=== PATIENT | female | born 1965 | race Caucasian/White ===

== ENCOUNTER 2016-11-21 18:42 | Emergency (ER) | payer OTHER ==
[~2016-11-21] VITALS: Ht 162.6 cm; Wt 82.9 kg
[~2016-11-21 18:42] MED LIST: ALBU1AER9 INH; ASPCH81X PO; BACL10TA PO; CYM/30 PO; DOXY100C PO; ELET40TA PO; ETOD300C20 PO; FRCT/ PO; FURO-85 PO; MELA1CAP9 PO; NRN/600 PO; OMEP40CA41 PO
[2016-11-21 19:08] VITALS: TEMP 36.9; Ht 162.6 cm; Wt 82.9 kg
[2016-11-21] MEDS ORDERED: ONDANSETRON INJ 2 MG/ML 2 ML VIAL IV STA (19:51)
[2016-11-21] MEDS ORDERED: XYLOCAINE 1%/SOD BICARB 20 ML VIAL INFIL STA (19:51)
[2016-11-21] MEDS ORDERED: KETOROLAC TROMETHAMINE 30 MG/ML VIAL IV STA (19:51)
[2016-11-21] MEDS ORDERED: SODIUM CHLORIDE 0.9% 1000ML 1,000 ML IV STA (19:51)
--- NOTE | 2016-11-21 19:54 | EMERGENCY ROOM VISIT NOTE ---
History Report prepared by Samuel: Natalya Gómez Under the Supervision of: Dr. Otto Eric M.D. First contact with patient: 19:20 Chief Complaint: NECK PAIN Stated Complaint: NECK HURTS, STOMACH SICK, EYES History of Present Illness The patient is a 51 year old female who presents to the Emergency Room with complaints of worsening neck pain beginning 4 days prior to arrival. She notes pain when moving her neck. The patient is experiencing fevers, vomiting, nausea , diarrhea, abdominal pain, dizziness and a mild headache. The patient went to the walk in clinic on Thursday due to an abscess that was under her arm. She was put on Bactrim. 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 A total of 10 systems reviewed and were otherwise negative. Past Medical & Surgical Medical Problems: (1) Diabetes (2) Fibromyalgia (3) Migraine headache Family History Hypertension Social History Smoking Status: Never Smoker Alcohol Use: none Drug Use: none Marital Status: Housing Status: lives with family Occupation Status: employed Current/Historical Medications Scheduled Acetamin/Butalbital/Caffeine (Fioricet), 1 TAB PO BID Albuterol Sulfate (Proair Respiclick), 2 PUFFS INH 2-3 TIMES DAILY Aluminum Hydroxide-Mag Carb (Gaviscon), 1 TBS PO BID Aspirin (Aspirin Chewable), 81 MG PO HS Baclofen (Lioresal), 10 MG PO BID Doxycycline Monohydrate (Monodox), 100 MG PO BID Duloxetine Hcl (Cymbalta), 40 MG PO HS Folic Acid (Folvite), 1 MG PO QAM Levocetirizine Dihydrochloride (Levocetirizine Dihydrochl), 5 MG PO QPM Melatonin (Melatonin), 30 MG PO HS Multivitamins/Minerals (Mvi With Minerals), 1 TAB PO DAILY Nifedipine Ext Rel (Procardia Xl Ext Rel), 30 MG PO QPM Amenia-3 Fatty Acids (Fish Oil 1200 mg), 1,200 MG PO QAM Omeprazole (Prilosec), 40 MG PO DAILY Ondasetron Odt (Zofran Odt), 4 MG SL Q6H Ranitidine (Zantac), 300 MG PO HS Scheduled PRN Furosemide (Lasix), 20 MG PO DAILY PRN for Swelling Ondansetron Hcl (Zofran), 8 MG PO Q8 PRN for Nausea [Emla], 1 APPLN TOP DAILY PRN for PRN Allergies Coded Allergies: Iodinated Diagnostic Agents (Unverified Allergy, Severe, "SWELLING: FACE, TONGUE, THROAT", 11/21/16) Amoxicillin (Unverified Allergy, Unknown, RASH, 11/21/16) Banana (Unverified Allergy, Unknown, VOMITING, 11/21/16) Black Pepper (Unverified Allergy, Unknown, VOMITING, 11/21/16) Citalopram (Unverified Allergy, Unknown, UNKNOWN, 11/21/16) Codeine (Unverified Allergy, Unknown, ?, 11/20/15) Gadolinium (Unverified Allergy, Unknown, UNKNOWN, 11/21/16) Meloxicam (Unverified Allergy, Unknown, ?, 11/20/15) Meperidine (Unverified Allergy, Unknown, RASH, 11/21/16) Morphine (Unverified Allergy, Unknown, RASH, 11/21/16) Morphine and Related (Unverified Allergy, Unknown, RASH, 11/21/16) Nitroglycerin (Unverified Allergy, Unknown, ?, 11/20/15) Penicillins (Unverified Allergy, Unknown, UNKNOWN, 11/21/16) Phenytoin (Unverified Allergy, Unknown, RASH, 11/21/16) Pork (Unverified Allergy, Unknown, VOMITING, 11/21/16) Prochlorperazine (Unverified Allergy, Unknown, RASH, 11/21/16) Salt (Unverified Allergy, Unknown, VOMITING, 11/21/16) Sumatriptan (Unverified Allergy, Unknown, ?, 11/20/15) Physical Exam Vital Signs Date Time Temp Pulse Resp B/P (MAP) Pulse Ox O2 Delivery O2 Flow Rate FiO2 11/21/16 22:09 80 18 112/74 98 11/21/16 21:28 75 11/21/16 21:08 73 18 117/61 100 Room Air 11/21/16 19:08 36.9 74 16 115/74 99 Room Air Physical Exam GENERAL: Patient is a healthy-appearing well-nourished female HEAD: Normocephalic atraumatic. No evidence of cephalitis or meningitis on exam. EYES: Ocular movements intact pupils equal and react to light OROPHARYNX mucous membranes are moist no exudates present no erythema or edema present NECK: Supple no nuchal rigidity CHEST: Good equal expansion LUNGS: Clear and equal to auscultation CARDIAC: Normal S1 and S2 ABDOMEN: Soft nontender no guarding BACK: No CVA tenderness EXTREMITIES: No pain upon palpation normal muscle strength in all groups no clubbing cyanosis or edema NEURO: Patient is following commands and answering questions appropriately. Alert and oriented x3 Cranial Nerves 2-12 grossly intact Medical Decision & Procedures ER Provider Diagnostic Interpretation: CT results as stated below per my review and radiologist interpretation: HEAD CT NONCONTRAST CT DOSE: 537.48 mGy.cm HISTORY: Headache. Mental status change. Pt c/o severe headache TECHNIQUE: Multiaxial CT images of the head were performed without the use of intravenous contrast. Comparison: 07/20/2013 Findings: The paranasal sinuses and mastoid air cells are clear. The calvarium and skull base are intact. The ventricles and sulci are within normal limits. There is no mass, hematoma, midline shift, or acute infarct. Impression: No acute intracranial abnormality. Electronically signed by: Will Harkins M.D. 11/21/2016 8:52 PM Dictated Date/Time: 11/21/2016 8:51 PM Laboratory Results 11/21/16 20:05 Red Blood Count 4.61, Mean Corpuscular Volume 86.6, Mean Corpuscular Hemoglobin 28.4, Mean Corpuscular Hemoglobin Concent 32.8, Mean Platelet Volume 9.1, Neutrophils (%) (Auto) 76.4, Lymphocytes (%) (Auto) 11.6, Monocytes (%) (Auto) 8.6, Eosinophils (%) (Auto) 2.6, Basophils (%) (Auto) 0.7, Neutrophils # (Auto) 5.65, Lymphocytes # (Auto) 0.86, Monocytes # (Auto) 0.64, Eosinophils # (Auto) 0.19, Basophils # (Auto) 0.05 11/21/16 20:05 Test 11/21/16 19:55 11/21/16 20:05 Urine Color YELLOW Urine Appearance CLOUDY (CLEAR) Urine pH 5.0 (4.5-7.5) Urine Specific [place] 1.038 (1.000-1.030) Urine Protein NEG (NEG) Urine Glucose (UA) NEG (NEG) Urine Ketones NEG (NEG) Urine Occult Blood NEG (NEG) Urine Nitrite NEG (NEG) Urine Bilirubin NEG (NEG) Urine Urobilinogen NEG (NEG) Urine Leukocyte Esterase NEG (NEG) Urine WBC (Auto) 1-5 /hpf (0-5) Urine RBC (Auto) 0-4 /hpf (0-4) Urine Hyaline Casts (Auto) 1-5 /lpf (0-5) Urine Epithelial Cells (Auto) >30 /lpf (0-5) Urine Bacteria (Auto) 1+ (NEG) White Blood Count 7.40 K/uL (4.8-10.8) Red Blood Count 4.61 M/uL (4.2-5.4) Hemoglobin 13.1 g/dL (12.0-16.0) Hematocrit 39.9 % (37-47) Mean Corpuscular Volume 86.6 fL (80-100) Mean Corpuscular Hemoglobin 28.4 pg (25-34) Mean Corpuscular Hemoglobin Concent 32.8 g/dl (32-36) Platelet Count 330 K/uL (130-400) Mean Platelet Volume 9.1 fL (7.4-10.4) Neutrophils (%) (Auto) 76.4 % Lymphocytes (%) (Auto) 11.6 % Monocytes (%) (Auto) 8.6 % Eosinophils (%) (Auto) 2.6 % Basophils (%) (Auto) 0.7 % Neutrophils # (Auto) 5.65 K/uL (1.4-6.5) Lymphocytes # (Auto) 0.86 K/uL (1.2-3.4) Monocytes # (Auto) 0.64 K/uL (0.11-0.59) Eosinophils # (Auto) 0.19 K/uL (0-0.5) Basophils # (Auto) 0.05 K/uL (0-0.2) RDW Standard Deviation 42.4 fL (36.4-46.3) RDW Coefficient of Variation 13.3 % (11.5-14.5) Immature Granulocyte % (Auto) 0.1 % Immature Granulocyte # (Auto) 0.01 K/uL (0.00-0.02) Anion Gap 9.0 mmol/L (3-11) Est Creatinine Clear Calc Drug Dose 70.1 ml/min Estimated GFR () 76.1 Estimated GFR (Non- 65.6 BUN/Creatinine Ratio 20.6 (10-20) Calcium Level 9.3 mg/dl (8.5-10.1) Total Bilirubin 0.2 mg/dl (0.2-1) Direct Bilirubin < 0.1 mg/dl (0-0.2) Aspartate Amino Transf (AST/SGOT) 13 U/L (15-37) Alanine Aminotransferase (ALT/SGPT) 23 U/L (12-78) Alkaline Phosphatase 92 U/L (45-117) Total Protein 8.1 gm/dl (6.4-8.2) Albumin 3.8 gm/dl (3.4-5.0) Lipase 197 U/L (73-393) Labs reviewed by ED physician. Medications Administered Medications (Trade) Dose Ordered Sig/Fernanda Route Start Time Stop Time Status Last Admin Dose Admin Ketorolac Tromethamine (Toradol Inj) 30 mg NOW STAT IV 11/21/16 19:51 11/21/16 19:53 DC 11/21/16 20:16 30 MG Ondansetron HCl (Zofran Inj) 4 mg NOW STAT IV 11/21/16 19:51 11/21/16 19:53 DC 11/21/16 20:11 4 MG Sodium Chloride 1,000 ml @ 999 mls/hr Q1H1M STAT IV 11/21/16 19:51 11/21/16 20:51 DC 11/21/16 20:15 999 MLS/HR Lidocaine HCl (Buffered Lidocaine 1% Inj) 20 ml ONE STAT INFIL 11/21/16 19:51 11/21/16 19:54 DC 11/21/16 20:16 20 ML Doxycycline Hyclate (Vibramycin Cap) 100 mg ONE ONCE PO 11/21/16 21:45 11/21/16 21:46 DC 11/21/16 21:54 100 MG Ondansetron HCl (ZOFRAN ODT 4MG Home Pack) 1 homepack UD ONCE PO 11/21/16 21:45 11/21/16 21:46 DC 11/21/16 21:54 1 HOMEPACK ED Course 1943: Past medical records reviewed. The patient was evaluated in room A12. A complete history and physical examination was performed. 1950: Buffered Lidocaine 1% Inj 20 ml INFIL, Sodium Chloride 1,000 ml @ 999 mls/ hr IV, Zofran Inj 4 mg Iv, Toradol Inj 30 mg IV. 2144: Zofran ODT 4 MG Home Pack 1 homepack PO, Vibramycin Cap 100 mg PO. 2145: I attempted to perform an I&D on the patient and she says that she did not want one performed. 2149: Upon reexamination the patient is hemodynamically stable. I discussed results and treatment plan with the patient. She verbalizes agreement and understanding. The patient is ready for discharge. Medical Decision Differential diagnosis: Etiologies such as migraine headache, meningitis, sinusitis, CO exposure, ICH, SAH, infection, tumor, headache, sinus thrombosis, arterial dissection, as well as others were entertained. Medication Reconciliation: I attest that I have personally reviewed the patient' s current medication list. Blood Pressure Screening: Patient was found to have normal blood pressure on screening and does not require follow up. This is a 51-year-old female who presents emergency department complaining of neck stiffness nausea and vomiting. I do not believe that the patient has any evidence of meningitis or encephalitis on examination however the patient noted that she is allergic to a large amount of medications and believe she is having allergic reaction to the Bactrim. For this reason I did start the patient's Bactrim. I recommended that these abscess in her armpit be drained however the patient is adamantly refusing. She wishes to try doxycycline. She was given Toradol Benadryl and Compazine for the pain. Repeat examination revealed improvement patient's symptoms. I do believe that the patient as well as to be discharged home for follow-up with her primary care physician. Patient was in agreement with the treatment plan. Impression Primary Impression: Vomiting Scribe Attestation The scribe's documentation has been prepared under my direction and personally reviewed by me in its entirety. I confirm that the note above accurately reflects all work, treatment, procedures, and medical decision making performed by me. Departure Information Dispostion Home / Self-Care Prescriptions Ondasetron Odt (ZOFRAN ODT) 4 Mg Tab 4 MG SL Q6H for Nausea, #6 TAB Prov: Otto Eric MD 11/21/16 Doxycycline Monohydrate (Monodox) 100 Mg Cap 100 MG PO BID for 10 Days, #20 CAP Prov: Otto Eric MD 11/21/16 Referrals Saniya Sim (PCP) Forms HOME CARE DOCUMENTATION FORM, IMPORTANT VISIT INFORMATION, WORK / SCHOOL INSTRUCTIONS Patient Instructions My [facility], Nausea Vomit Control Additional Instructions STOP taking Bactrim Take Doxycyline with food Culture results are usually available in approx 48 hours You have been examined and treated today on an emergency basis only. This is not a substitute for, or an effort to provide, complete comprehensive medical care. It is impossible to recognize and treat all injuries or illnesses in a single emergency department visit. It is therefore important that you follow up closely with Dr Sim. Call as soon as possible for an appointment. Thank you for your time and consideration. I look forward to speaking with you again soon. Please don't hesitate to call us if you have any questions. Problem Qualifiers Primary Impression: Vomiting Vomiting type: unspecified Vomiting Intractability: unspecified Nausea presence: unspecified Qualified Codes: R11.10 - Vomiting, unspecified
[2016-11-21] MEDS ORDERED: ALUMSUS21 PO (20:16)
[2016-11-21] MEDS ORDERED: NIFE30TA83 PO (20:16)
[2016-11-21] MEDS ORDERED: ONDA8TAB6 PO (20:16)
[2016-11-21] MEDS ORDERED: EMLA TOP (20:16)
[2016-11-21] MEDS ORDERED: FOLI1TAB7 PO (20:16)
[2016-11-21] MEDS ORDERED: LEVO-14 PO (20:16)
[2016-11-21] MEDS ORDERED: DULO-24 PO (20:16)
[2016-11-21] MEDS ORDERED: RANI300T2 PO (20:16)
[2016-11-21] MEDS ORDERED: OMEG5CAP PO (20:16)
[2016-11-21] MEDS ORDERED: ALBU18002 INH (20:16)
[2016-11-21 20:18] LABS: BASO % 0.7 %; BASO ABS # 0.05 K/uL (0-0.2); COMPLETE YES; EOS % 2.6 %; HEMATOCRIT 39.9 % (37-47); IG% 0.1 %; LYMPH % 11.6 %; LYMPH ABS # 0.86 K/uL (1.2-3.4); MEAN CELL VOLUME 86.6 fL (80-100); MEAN CORPUSCULAR HEMOGLOBIN 28.4 pg (25-34); MEAN CORPUSCULAR HGB CONC 32.8 g/dl (32-36); MEAN PLATELET VOLUME 9.1 fL (7.4-10.4); MONO % 8.6 %; NEUT % 76.4 %; PLATELET COUNT 330 K/uL (130-400); RED BLOOD COUNT 4.61 M/uL (4.2-5.4)
[2016-11-21] MEDS ORDERED: MULT-513 PO (20:18)
[2016-11-21 20:22] LABS: MANUAL MICROSCOPIC REQUIRED? NO; REVIEW REQ? NO; URINE APPEARANCE CLOUDY (CLEAR); URINE BILIRUBIN NEG (NEG); URINE COLOR YELLOW; URINE EPITHELIAL CELL AUTO >30 /lpf (0-5); URINE NITRITE NEG (NEG); URINE SPECIFIC GRAVITY 1.038 (1.000-1.030); UROBILINOGEN NEG (NEG)
[2016-11-21 20:34] LABS: ALT/SGPT 23 U/L (12-78); BLOOD UREA NITROGEN 21 mg/dl (7-18); BUN/CREATININE RATIO 20.6 (10-20); CALCIUM 9.3 mg/dl (8.5-10.1); CARBON DIOXIDE 26 mmol/L (21-32); CHLORIDE 104 mmol/L (98-107); GLUCOSE 109 mg/dl (70-99); POTASSIUM 3.9 mmol/L (3.5-5.1); SODIUM 139 mmol/L (136-145)
[2016-11-21 20:37] LABS: ALKALINE PHOSPHATASE 92 U/L (45-117); AST/SGOT 13 U/L (15-37)
--- NOTE | 2016-11-21 20:53 | DIAGNOSTIC IMAGING REPORT ---
HEAD CT NONCONTRAST CT DOSE: 537.48 mGy.cm HISTORY: Headache. Mental status change. Pt c/o severe headache TECHNIQUE: Multiaxial CT images of the head were performed without the use of intravenous contrast. Comparison: 07/20/2013 Findings: The paranasal sinuses and mastoid air cells are clear. The calvarium and skull base are intact. The ventricles and sulci are within normal limits. There is no mass, hematoma, midline shift, or acute infarct. Impression: No acute intracranial abnormality. Electronically signed by: Will Harkins M.D. 11/21/2016 8:52 PM Dictated Date/Time: 11/21/2016 8:51 PM
[2016-11-21] MEDS ORDERED: ONDANSETRON HOME PACK 4MG OD TAB PO ONE (21:45)
[2016-11-21] MEDS ORDERED: DOXYCYCLINE HYCLATE 100 MG CAP PO ONE (21:45)
[2016-11-21] MEDS ORDERED: ONDA4TAB10 SL (21:48)
[2016-11-21] MEDS ORDERED: DOXY100C76 PO (21:48)
[2016-11-21 22:09] VITALS: BP 112/74; PULSE 80; O2SAT 98
[2017-03-23] MEDS ORDERED: CLC/150 PO (10:53)
[2017-03-23] MEDS ORDERED: ACET1TAB84 PO (10:53)
== END 2016-11-21 22:09 | disposition home or self-care (01) ==
LOC: C.EDB 18:47 → C.EDA 22:09
DX: M43.6 Torticollis (principal); L02.419 Cutaneous abscess of limb, unspecified; R50.9 Fever, unspecified; R11.12 Projectile vomiting; R19.7 Diarrhea, unspecified; R10.9 Unspecified abdominal pain; R42 Dizziness and giddiness; R51 Headache; E11.9 Type 2 diabetes mellitus without complications; M79.7 Fibromyalgia; Z79.899 Other long term (current) drug therapy

== ENCOUNTER 2018-01-14 21:10 | Emergency (ER) | payer OTHER ==
[~2018-01-14] VITALS: Ht 157.5 cm; Wt 84.3 kg
[~2018-01-14 21:10] MED LIST changes: +ACET1TAB84 PO; +ALBU18002 INH; -ALBU1AER9 INH; +CLC/150 PO; -CYM/30 PO; -DOXY100C PO; +DULO-24 PO; -ELET40TA PO; +EMLA TOP; -ETOD300C20 PO; +FOLI1TAB8 PO; -FRCT/ PO; +MULT-513 PO; -NRN/600 PO; +OMEG5CAP PO; +ONDA-170 PO; +RANI300T2 PO
[2018-01-14 21:16] VITALS: TEMP 36.9; Ht 157.5 cm; Wt 84.3 kg
[2018-01-14] MEDS ORDERED: SODIUM CHLORIDE 0.9% 1000ML 1,000 ML IV STA (22:23)
[2018-01-14] MEDS ORDERED: KETOROLAC TROMETHAMINE 30 MG/ML VIAL IV STA (22:23)
[2018-01-14 22:35] LABS: BASO ABS # 0.07 K/uL (0-0.2); EOS % 1.6 %; EOS ABS # 0.11 K/uL (0-0.5); HEMATOCRIT 37.1 % (37-47); HEMOGLOBIN 12.2 g/dL (12.0-16.0); IG# 0.02 K/uL (0.00-0.02); LYMPH % 24.8 %; LYMPH ABS # 1.69 K/uL (1.2-3.4); MEAN CELL VOLUME 85.9 fL (80-100); MEAN CORPUSCULAR HEMOGLOBIN 28.2 pg (25-34); MEAN CORPUSCULAR HGB CONC 32.9 g/dl (32-36); MEAN PLATELET VOLUME 9.1 fL (7.4-10.4); MONO % 6.5 %; MONO ABS # 0.44 K/uL (0.11-0.59); NEUT % 65.8 %; NEUT ABS # 4.49 K/uL (1.4-6.5); PLATELET COUNT 319 K/uL (130-400); RED CELL DISTRIBUTION WIDTH CV 13.6 % (11.5-14.5); WHITE BLOOD COUNT 6.82 K/uL (4.8-10.8)
[2018-01-14] MEDS ORDERED: GABA-112 PO (22:44)
--- NOTE | 2018-01-14 22:45 | DIAGNOSTIC IMAGING REPORT ---
CT SCAN OF THE BRAIN WITHOUT IV CONTRAST CLINICAL HISTORY: Weakness. Change in mental status. COMPARISON STUDY: CT of the brain dated 11/21/2016. TECHNIQUE: Unenhanced axial CT scan of the brain is performed from the vertex to the skull base. A dose lowering technique was utilized adhering to the principles of ALARA. CT DOSE: 537.48 mGy.cm FINDINGS: Brain parenchyma: The brain parenchyma is normal in appearance. There is no hemorrhage, mass effect, or evidence of acute territorial ischemia by CT criteria. [place]-white matter is preserved. No extra-axial fluid collection is seen. Ventricles, sulci, cisterns: Normal in configuration. Intracranial vasculature: The visualized intracranial vasculature at the skull base is normal in appearance. Calvarium: Unremarkable. Sinuses and mastoids: The visualized paranasal sinuses are clear. The mastoid air cells are well pneumatized. Orbits: The bony orbits are grossly intact. IMPRESSION: There is no hemorrhage, mass effect, or evidence of acute territorial ischemia by CT criteria. Electronically signed by: Rodolfo Conklin M.D. 01/14/2018 10:44 PM Dictated Date/Time: 01/14/2018 10:42 PM
[2018-01-14 22:47] LABS: PTT PATIENT 25.4 SECONDS (21.0-31.0)
[2018-01-14 23:05] LABS: ALBUMIN 3.5 gm/dl (3.4-5.0); ALKALINE PHOSPHATASE 94 U/L (45-117); ALT/SGPT 21 U/L (12-78); AST/SGOT 15 U/L (15-37); BLOOD UREA NITROGEN 16 mg/dl (7-18); CALCIUM 8.7 mg/dl (8.5-10.1); CARBON DIOXIDE 28 mmol/L (21-32); CKMB 1.5 ng/ml (0.5-3.6); GLUCOSE 96 mg/dl (70-99); LIPASE 209 U/L (73-393); POTASSIUM 3.7 mmol/L (3.5-5.1); SODIUM 139 mmol/L (136-145); TOTAL PROTEIN 7.4 gm/dl (6.4-8.2)
--- NOTE | 2018-01-14 23:27 | DIAGNOSTIC IMAGING REPORT ---
SINGLE VIEW CHEST CLINICAL HISTORY: Weakness. Change in mental status. FINDINGS: An AP, portable, upright chest radiograph is compared to study dated 08/14/2010. The examination is degraded by portable technique and patient rotation. The heart is top normal for projection. The mediastinal contour is within normal limits. Bibasilar atelectasis is observed. No airspace consolidation or large pleural effusion is identified. No pneumothorax is seen. The bony thorax is grossly intact. IMPRESSION: No acute cardiopulmonary abnormality. Electronically signed by: Rodolfo Conklin M.D. 01/14/2018 11:25 PM Dictated Date/Time: 01/14/2018 11:25 PM
--- NOTE | 2018-01-14 23:42 | EMERGENCY ROOM VISIT NOTE ---
History Report prepared by Samuel: Bala Paz Under the Supervision of: Dr. Otto Miranda D.O. First contact with patient: 22:11 Chief Complaint: NEURO SYMPTOMS Stated Complaint: HEADACHE, LEFT SIDE NUMBNESS,CONFUSION, DROOLING History of Present Illness The patient is a 52 year old female who presents to the Emergency Room with complaints of left sided pain and numbness on the left side of her face, head, neck and arm that started today and have worsened. She complains of being confused when trying to talk and her family says she is slower than normal. Her reports that he came home at 1800 today to her sleeping and when he woke her up the symptoms began. The patient states that she has a history of migraine and fibromyalgia in which she takes medications for. She also has a history of an angioplasty and coronary stent in 2014 along with Lyme disease. She reports no other stressors in her life. Source of History: patient, family Onset: Today around 1800 Position: other (Generalized) Quality: numbness Timing: worsening Associated Symptoms: + headache, + neck pain Review of Systems See HPI for pertinent positives & negatives. A total of 10 systems reviewed and were otherwise negative. Past Medical & Surgical Medical Problems: (1) Diabetes (2) Fibromyalgia (3) Migraine headache Surgical Problems: (1) History of angioplasty (2) Stented coronary artery Family History Hypertension Social History Smoking Status: Never Smoker Alcohol Use: none Drug Use: none Marital Status: Housing Status: lives with family Occupation Status: unemployed Current/Historical Medications Scheduled Aspirin (Aspirin Chewable), 81 MG PO HS Baclofen (Lioresal), 10 MG PO BID Duloxetine Hcl (Cymbalta), 40 MG PO HS Folic Acid (Folvite), 1 MG PO QAM Gabapentin (Neurontin), 1 TAB PO HS Multivitamins/Minerals (Mvi With Minerals), 1 TAB PO DAILY [place]-3 Fatty Acids (Fish Oil 1200 mg), 1,200 MG PO QAM Omeprazole (Prilosec), 40 MG PO DAILY Scheduled PRN Acetaminophen (Tylenol Arthritis Ext Rel), 650 MG PO Q12 PRN for prn Albuterol Sulfate (Proair Respiclick), 2 PUFFS INH 2-3 TIMES DAILY PRN for SOB/ Wheezing Furosemide (Lasix), 20 MG PO DAILY PRN for Swelling Ondansetron Hcl (Zofran), 8 MG PO Q8 PRN for Nausea [Emla], 1 APPLN TOP DAILY PRN for PRN Miscellaneous Medications Clindamycin HCl (Clindamycin HCl), 600 MG PO Allergies Coded Allergies: Iodinated Diagnostic Agents (Unverified Allergy, Severe, "SWELLING: FACE, TONGUE, THROAT", 07/09/17) Amoxicillin (Unverified Allergy, Unknown, RASH, 07/09/17) Banana (Unverified Allergy, Unknown, VOMITING, 07/09/17) Black Pepper (Unverified Allergy, Unknown, VOMITING, 07/09/17) Citalopram (Unverified Allergy, Unknown, UNKNOWN, 07/09/17) Codeine (Unverified Allergy, Unknown, ?, 07/09/17) Gadolinium (Unverified Allergy, Unknown, UNKNOWN, 07/09/17) Meloxicam (Unverified Allergy, Unknown, ?, 07/09/17) Meperidine (Unverified Allergy, Unknown, RASH, 07/09/17) Morphine (Unverified Allergy, Unknown, RASH, 07/09/17) Morphine and Related (Unverified Allergy, Unknown, RASH, 07/09/17) Nitroglycerin (Unverified Allergy, Unknown, ?, 07/09/17) Penicillins (Unverified Allergy, Unknown, UNKNOWN, 07/09/17) Phenytoin (Unverified Allergy, Unknown, RASH, 07/09/17) Pork (Unverified Allergy, Unknown, VOMITING, 07/09/17) Prochlorperazine (Unverified Allergy, Unknown, RASH, 07/09/17) Salt (Unverified Allergy, Unknown, VOMITING, 07/09/17) Sumatriptan (Unverified Allergy, Unknown, ?, 07/09/17) Physical Exam Vital Signs Date Time Temp Pulse Resp B/P (MAP) Pulse Ox O2 Delivery O2 Flow Rate FiO2 01/14/18 22:15 68 27 98 01/14/18 22:11 65 01/14/18 22:10 66 24 98 01/14/18 22:08 129/63 01/14/18 21:16 36.9 67 18 124/73 97 Room Air Physical Exam VITAL SIGNS: were reviewed as above. GENERAL:Non-toxic in appearance. SKIN: Warm dry and pink. HEAD: Normocephalic and atraumatic. OROPHARYNX: Is clear and moist NECK: Supple without lymphadenopathy or meningismus. LUNGS: clear. HEART: Regular rate and rhythm. ABDOMEN: Soft and nontender. EXTREMITIES: Warm and well perfused. NEUROLOGICALLY: Awake alert and oriented without focal deficit. Cranial nerves 2 -12 are intact. There is no pronator drift. Cerebellar testing is within normal limits. There is no nystagmus. There is no facial droop. Speech is slower than normal. Vision is grossly normal. MUSCULOSKELETAL: Good muscle tone. No evidence of trauma. Medical Decision & Procedures ER Provider Diagnostic Interpretation: Radiology results as stated below per my review and radiologist interpretation: CT SCAN OF THE BRAIN WITHOUT IV CONTRAST CLINICAL HISTORY: Weakness. Change in mental status. COMPARISON STUDY: CT of the brain dated 11/21/2016. TECHNIQUE: Unenhanced axial CT scan of the brain is performed from the vertex to the skull base. A dose lowering technique was utilized adhering to the principles of ALARA. CT DOSE: 537.48 mGy.cm FINDINGS: Brain parenchyma: The brain parenchyma is normal in appearance. There is no hemorrhage, mass effect, or evidence of acute territorial ischemia by CT criteria. [place]-white matter is preserved. No extra-axial fluid collection is seen. Ventricles, sulci, cisterns: Normal in configuration. Intracranial vasculature: The visualized intracranial vasculature at the skull base is normal in appearance. Calvarium: Unremarkable. Sinuses and mastoids: The visualized paranasal sinuses are clear. The mastoid air cells are well pneumatized. Orbits: The bony orbits are grossly intact. IMPRESSION: There is no hemorrhage, mass effect, or evidence of acute territorial ischemia by CT criteria. Electronically signed by: Rodolfo Conklin M.D. 01/14/2018 10:44 PM Dictated Date/Time: 01/14/2018 10:42 PM SINGLE VIEW CHEST CLINICAL HISTORY: Weakness. Change in mental status. FINDINGS: An AP, portable, upright chest radiograph is compared to study dated 08/14/2010. The examination is degraded by portable technique and patient rotation. The heart is top normal for projection. The mediastinal contour is within normal limits. Bibasilar atelectasis is observed. No airspace consolidation or large pleural effusion is identified. No pneumothorax is seen. The bony thorax is grossly intact. IMPRESSION: No acute cardiopulmonary abnormality. Electronically signed by: Rodolfo Conklin M.D. 01/14/2018 11:25 PM Dictated Date/Time: 01/14/2018 11:25 PM Laboratory Results 01/14/18 22:13 Red Blood Count 4.32, Mean Corpuscular Volume 85.9, Mean Corpuscular Hemoglobin 28.2, Mean Corpuscular Hemoglobin Concent 32.9, Mean Platelet Volume 9.1, Neutrophils (%) (Auto) 65.8, Lymphocytes (%) (Auto) 24.8, Monocytes (%) (Auto) 6.5, Eosinophils (%) (Auto) 1.6, Basophils (%) (Auto) 1.0, Neutrophils # (Auto) 4.49, Lymphocytes # (Auto) 1.69, Monocytes # (Auto) 0.44, Eosinophils # (Auto) 0.11, Basophils # (Auto) 0.07 01/14/18 22:13 Test 01/14/18 22:13 White Blood Count 6.82 K/uL (4.8-10.8) Red Blood Count 4.32 M/uL (4.2-5.4) Hemoglobin 12.2 g/dL (12.0-16.0) Hematocrit 37.1 % (37-47) Mean Corpuscular Volume 85.9 fL (80-100) Mean Corpuscular Hemoglobin 28.2 pg (25-34) Mean Corpuscular Hemoglobin Concent 32.9 g/dl (32-36) Platelet Count 319 K/uL (130-400) Mean Platelet Volume 9.1 fL (7.4-10.4) Neutrophils (%) (Auto) 65.8 % Lymphocytes (%) (Auto) 24.8 % Monocytes (%) (Auto) 6.5 % Eosinophils (%) (Auto) 1.6 % Basophils (%) (Auto) 1.0 % Neutrophils # (Auto) 4.49 K/uL (1.4-6.5) Lymphocytes # (Auto) 1.69 K/uL (1.2-3.4) Monocytes # (Auto) 0.44 K/uL (0.11-0.59) Eosinophils # (Auto) 0.11 K/uL (0-0.5) Basophils # (Auto) 0.07 K/uL (0-0.2) RDW Standard Deviation 43.0 fL (36.4-46.3) RDW Coefficient of Variation 13.6 % (11.5-14.5) Immature Granulocyte % (Auto) 0.3 % Immature Granulocyte # (Auto) 0.02 K/uL (0.00-0.02) Prothrombin Time 10.0 SECONDS (9.0-12.0) Prothromb Time International Ratio 1.0 (0.9-1.1) Activated Partial Thromboplast Time 25.4 SECONDS (21.0-31.0) Partial Thromboplastin Ratio 1.0 Anion Gap 6.0 mmol/L (3-11) Est Creatinine Clear Calc Drug Dose 83.8 ml/min Estimated GFR () 98.9 Estimated GFR (Non- 85.4 BUN/Creatinine Ratio 20.3 (10-20) Calcium Level 8.7 mg/dl (8.5-10.1) Magnesium Level 2.2 mg/dl (1.8-2.4) Total Bilirubin 0.2 mg/dl (0.2-1) Direct Bilirubin < 0.1 mg/dl (0-0.2) Aspartate Amino Transf (AST/SGOT) 15 U/L (15-37) Alanine Aminotransferase (ALT/SGPT) 21 U/L (12-78) Alkaline Phosphatase 94 U/L (45-117) Total Creatine Kinase 87 U/L (26-192) Creatine Kinase MB 1.5 ng/ml (0.5-3.6) Creatine Kinase MB Ratio 1.7 (0-3.0) Troponin I < 0.015 ng/ml (0-0.045) Total Protein 7.4 gm/dl (6.4-8.2) Albumin 3.5 gm/dl (3.4-5.0) Lipase 209 U/L (73-393) Thyroid Stimulating Hormone (TSH) 7.570 uIu/ml (0.300-4.500) Laboratory results as stated above per my review. Medications Administered Medications (Trade) Dose Ordered Sig/Fernanda Route Start Time Stop Time Status Last Admin Dose Admin Sodium Chloride 1,000 ml @ 999 mls/hr Q1H1M STAT IV 01/14/18 22:23 01/14/18 23:23 DC 01/14/18 22:30 999 MLS/HR Ketorolac Tromethamine (Toradol Inj) 30 mg NOW STAT IV 01/14/18 22:23 01/14/18 22:24 DC 01/14/18 22:30 30 MG ECG Per My Interpretation Indication: altered mental status Rate (beats per minute): 67 Rhythm: normal sinus Findings: no ectopy, other (No ST elevation) ED Course 2215: Previous medical records were reviewed. The patient was evaluated in room C12B. A complete history and physical examination was performed. 2223: Toradol 30mg IV, Sodium Chloride 1000 ml @ 999 mls/hr 2337: I reevaluated the patient and she if doing better, her symptoms have resolved. 2355:On reevaluation, the patient is resting in bed. I discussed the results and findings with the patient. She verbalized agreement of the treatment plan. She was discharged home. Medical Decision Differential includes acute coronary syndrome, myocardial infarction, CVA, TIA, anemia, infection, pneumonia, UTI, pyelonephritis, poor nutrition, dehydration, electrolyte disturbance,hypoglycemia. This is a 52-year-old female who presents to the ED with a chief complaint of her head hurting, left-sided face and arm numbness and discomfort as well as some speech difficulty. The patient states that she was sleeping and awoke at 6 PM. Her symptoms were present when she awoke. She was brought into the ED tonight because she did not feel she go to work. Her physical exam and neurologic exam was relatively unremarkable. She had slow speech but no focal deficits. She had no trouble with word finding or enunciating words. She just spoke as if it was in slow motion. Her vital signs are normal. Physical exam was unremarkable. The patient reports history of migraines and fibromyalgia. An EKG shows a normal sinus rhythm. CT scan of the brain was negative for acute disease. CBC and complete metabolic panel were normal. Troponin was negative and a chest x-ray did not show acute process. The patient was treated with IV fluids as well as IV Toradol. Medication Reconcilliation Current Medication List: was personally reviewed by me Blood Pressure Screening Patient's blood pressure: Normal blood pressure Impression Primary Impression: Headache Scribe Attestation The scribe's documentation has been prepared under my direction and personally reviewed by me in its entirety. I confirm that the note above accurately reflects all work, treatment, procedures, and medical decision making performed by me. Departure Information Referrals Will Live M.D. (PCP) Patient Instructions My [facility]
[2018-01-14 23:58] VITALS: BP 128/62; PULSE 68; O2SAT 98
== END 2018-01-15 00:20 | disposition home or self-care (01) ==
LOC: C.EDB 21:11 → C.EDC 01-15 00:20
DX: R51 Headache (principal); R20.0 Anesthesia of skin; M79.7 Fibromyalgia; Z95.5 Presence of coronary angioplasty implant and graft; E11.9 Type 2 diabetes mellitus without complications; Z82.49 Family history of ischemic heart disease and other diseases of the circulatory system; Z79.82 Long term (current) use of aspirin; Z79.899 Other long term (current) drug therapy; Z91.041 Radiographic dye allergy status; Z88.0 Allergy status to penicillin; Z88.8 Allergy status to other drugs, medicaments and biological substances; Z88.5 Allergy status to narcotic agent; Z91.018 Allergy to other foods

== ENCOUNTER 2025-05-10 09:25 | Observation (INO) ==
--- NOTE | 2025-05-10 09:43 | Emergency Department Note ---
History of Present Illness General Chief complaint: Back Injury/Pain Stated complaint: VOMITING, HEADACHE, BACK PAIN Time Seen by Provider: 05/10/25 09:41 History of Present Illness Maximum Pain Intensity: 6 This is a 60-year-old female that presents to the emergency department via private vehicle with complaints "vomiting, headache, back pain". The patient notes that this past Thursday evening, 05/06/2025 she developed a headache. She denies any trauma or injury. This does feel similar to previous headaches. She notes that she continues to vomit and is having trouble keeping down any food or fluid. She also notes right low back pain radiating down the right leg. She notes this is not the worst headache of her life. No anticoagulant use. She notes remote history of stroke around age 31. She questions if she has had a fever but none at the present time. Reported tick bite a few months ago. Home Medications Medication Instructions Recorded Confirmed Type albuterol sulfate 90 mcg/actuation 2 puff inhalation Q4H PRN wheeze 06/26/20 05/10/25 History aerosol inhaler baclofen 20 mg tablet 20 mg PO AMHS 06/26/20 05/10/25 History furosemide 20 mg tablet (Lasix) 20 mg PO DAILY PRN Edema 10/16/21 05/10/25 History multivitamin 1 tab PO DAILY 01/03/23 05/10/25 History duloxetine 30 mg capsule,delayed 30 mg PO QPM 05/10/25 05/10/25 History release pantoprazole 40 mg tablet,delayed 40 mg PO BIDM 05/10/25 05/10/25 History release Allergies Allergy/AdvReac Type Severity Reaction Status Date / Time Gadolinium-Containing Allergy Severe SEVERE Verified 10/16/21 00:48 Contrast Medi PERIORBITAL EDEMA Iodinated Contrast Media Allergy Severe "SWELLING: Verified 10/16/21 00:48 FACE, TONGUE, THROAT" Pork/Porcine Containing Allergy Severe THROAT Verified 10/16/21 00:48 Products SWELLS amoxicillin Allergy Intermediate Hives Verified 10/16/21 00:48 black pepper Allergy Intermediate VOMITING Verified 10/16/21 00:48 buprenorphine Allergy Intermediate Hives Verified 10/16/21 00:48 morphine Allergy Intermediate Hives Verified 10/16/21 00:48 nitroglycerin Allergy Intermediate Hives Verified 10/16/21 00:48 Penicillins Allergy Intermediate Hives Verified 10/16/21 00:48 phenytoin Allergy Intermediate RASH Verified 10/16/21 00:48 prochlorperazine Allergy Intermediate RASH Verified 10/16/21 00:48 citalopram Allergy Unknown UNKNOWN Verified 10/16/21 00:48 codeine Allergy Unknown Unknown Verified 10/16/21 00:48 metoclopramide [From Reglan] AdvReac Severe TACHYCARDIA, Verified 10/16/21 00:48 HYPERTENSION sumatriptan AdvReac Severe SEVERE Verified 10/16/21 00:48 VOMITING doxycycline AdvReac Intermediate VISION Verified 10/16/21 00:48 CHANGES meloxicam AdvReac Intermediate MOUTH Verified 10/16/21 00:48 SORES & BLEEDING meperidine AdvReac Intermediate BLURRED Verified 10/16/21 00:48 VISION/SEVERE FEVER sulfamethoxazole AdvReac Intermediate Vomiting Verified 10/16/21 00:48 [From Bactrim] trimethoprim [From Bactrim] AdvReac Intermediate Vomiting Verified 10/16/21 00:48 SUTILAINS Allergy Severe SEVERE Uncoded 10/16/21 00:48 PERIORBITAL EDEMA CLORAX BLEACH Allergy Intermediate RASH, Uncoded 10/16/21 00:48 HEADACHE Salt AdvReac Intermediate VOMITING Uncoded 10/16/21 00:48 Past Med/Surg History Problem List (Updated 05/10/25 @ 16:37 by Teddy Tee PA-C) Nausea and vomiting (Acute) Lyme disease (Acute) Lumbar radiculopathy (Acute) SIRS (systemic inflammatory response syndrome) No significant past surgical history Allergic reaction (Acute) Migraine headache (Chronic) Diabetes (Chronic) Fibromyalgia (Chronic) Headache (Acute) Medical History GERD (gastroesophageal reflux disease) Situational stress Anxiety Atypical chest pain Social History Smoking Status: Never smoker Second Hand Exposure: No; Hx Alcohol Use: No Hx Substance Use: No Preferred Language: Greek Communication Ability: Effective Field Captain Required: No Beliefs That Will Affect Care: None marital status: marital status details: but living with spouse Current Living Situation: Family Current Living Situation Comment: noted that pt is but lives w/ spouse (per note from ED) Feels Safe at Home: Yes Safety Concerns: Feels Safe At This Time Assistive Devices: Glasses Review of Systems A total of 10 systems reviewed and were otherwise negative Physical Exam Vital Signs Vital Signs - 24 hr 05/10/25 09:38 05/10/25 10:02 05/10/25 11:59 Temperature 36.7 C Temperature Source Skin Pulse Rate 72 Pulse Rate [Finger] 60 Respiratory Rate 20 18 Respiratory Effort / Characteristics Non-Labored Spontaneous Non-Labored Spontaneous Respiratory Depth Normal Normal Respiratory Pattern Regular Regular Blood Pressure 93/66 L Blood Pressure [Left Arm] 112/63 Blood Pressure Mean 75 Blood Pressure Mean [Left Arm] 79 Pulse Oximetry 97 94 96 Oxygen Delivery Method Room Air Room Air Room Air Sepsis Recent Fever Within 48 Hours No Sepsis New/Unexplained Change in Mental Status N/A Sepsis Action Taken by Nursing No Action Required 05/10/25 14:43 Temperature Temperature Source Pulse Rate Pulse Rate [Finger] 74 Respiratory Rate 20 Respiratory Effort / Characteristics Respiratory Depth Respiratory Pattern Blood Pressure Blood Pressure [Left Arm] 114/61 Blood Pressure Mean Blood Pressure Mean [Left Arm] 78 Pulse Oximetry Oxygen Delivery Method Sepsis Recent Fever Within 48 Hours Sepsis New/Unexplained Change in Mental Status Sepsis Action Taken by Nursing VITAL SIGNS - Vital signs and nursing notes were reviewed. Borderline hypotensive 93/66, otherwise stable and afebrile. GENERAL -60-year-old female appearing her stated age who is in no acute distress. Communicates well with provider and answers questions appropriately. Bucket at bedside with patient for emesis. SKIN - Without rashes. No meningeal or petechial rash. HEAD - NC/AT. EYES - PERRL with EOMI bilaterally. Sclera anicteric. EARS - No deformities of external structures noted on gross examination bilaterally. NOSE - Midline and without cyanosis. No epistaxis or purulent drainage noted. MOUTH/OROPHARYNX - Without perioral cyanosis. NECK - Neck with FROM. No nuchal rigidity. LUNGS - CTA CARDIAC - RRR ABDOMEN - Abdominal contour normal without pulsations or visible masses. BS normoactive all four quadrants. No tenderness, palpable masses, hepatosplenomegaly, or ascites noted. EXTREMITIES - No clubbing or peripheral cyanosis. +5/5 strength noted in UE/LE bilaterally. NEUROLOGIC - Cranial nerves II through XII grossly intact. PSYCH -alert, oriented and pleasant on exam. Course Administered Medications Acetaminophen (Acetaminophen 325 Mg Tab) 650 mg PO Q4H PRN PRN Reason: pain/fever Stop: 06/09/25 18:45 Last Admin: 05/11/25 00:04 Dose: 650 mg Documented By: MONTEZ Baclofen (Baclofen 20 Mg Tab) 20 mg PO BID [facility] Stop: 06/09/25 20:59 Last Admin: 05/11/25 08:56 Dose: 20 mg Documented By: Admin: 05/10/25 20:46 Dose: 20 mg Documented By: [id number] Duloxetine HCl (Duloxetine Hcl 20 Mg Cap) 20 mg PO DAILY ANALI Stop: 06/10/25 08:59 Last Admin: 05/11/25 08:55 Dose: Not Given Documented By: STEFANIE Heparin Sodium (Porcine) (Heparin Sod 5,000 Unit/0.5 Ml Vial) 5,000 units SQ Q12 [facility] Stop: 06/09/25 20:59 Last Admin: 05/11/25 09:02 Dose: Not Given Documented By: Admin: 05/10/25 20:55 Dose: 5,000 units Documented By: [id number] Insulin Aspart (Insulin Aspart Per Unit Charge) 0 units SC ACHS [facility] Stop: 06/09/25 20:59 Last Admin: 05/11/25 08:53 Dose: 2 units Documented By: STEFANIE Co-signed By: OLGA Admin: 05/10/25 20:51 Dose: Not Given Documented By: [id number] Miscellaneous (Order Awaiting Action: Zolmatriptan Nasal [place]) 1 each N/A QS [facility] Stop: 06/10/25 00:00 Last Admin: 05/11/25 08:53 Dose: Not Given Documented By: Admin: 05/11/25 00:05 Dose: Not Given Documented By: MONTEZ Pantoprazole Sodium (Pantoprazole 40 Mg Tab) 40 mg PO BID [facility] Stop: 06/09/25 20:59 Last Admin: 05/11/25 08:56 Dose: 40 mg Documented By: Admin: 05/10/25 20:46 Dose: 40 mg Documented By: [id number] Discontinued Medications Dexamethasone Sodium Phosphate (DexamethasonePf 10 Mg/Ml Vial) 10 mg IV NOW ONE Stop: 05/10/25 11:54 Last Admin: 05/10/25 11:57 Dose: 10 mg Documented By: LIANE Diphenhydramine HCl (Diphenhydramine 50 Mg/Ml Vial) 25 mg IV NOW STA Stop: 05/10/25 09:53 Last Admin: 05/10/25 10:09 Dose: 25 mg Documented By: QGV Sodium Chloride (Nss) 1,000 mls @ 999 mls/hr IV .Q1H1M ONE Stop: 05/10/25 10:41 Last Infusion: 05/10/25 13:58 Dose: Infused Documented By: amg Admin: 05/10/25 10:08 Dose: 999 mls/hr Documented By: QGV Acetaminophen (Ofirmev) 1,000 mg in 100 mls @ 400 mls/hr IV NOW STA Stop: 05/10/25 10:06 Last Infusion: 05/10/25 13:58 Dose: Infused Documented By: amg Admin: 05/10/25 10:08 Dose: 400 mls/hr Documented By: QGV Ceftriaxone Sodium (Rocephin) 2,000 mg in 50 mls @ 100 mls/hr IV NOW STA Stop: 05/10/25 14:37 Last Infusion: 05/10/25 17:00 Dose: Infused Documented By: [id number] Admin: 05/10/25 14:41 Dose: 100 mls/hr Documented By: amg Sodium Chloride (Nss) 500 mls @ 120 mls/hr IV .Q4H10M ANALI Stop: 05/10/25 22:55 Last Infusion: 05/10/25 23:59 Dose: Infused Documented By: Admin: 05/10/25 19:07 Dose: 120 mls/hr Documented By: [id number] Medical Decision Making Laboratory Data 05/11/25 06:58 05/11/25 06:58 Lab Results 05/10/25 05/10/25 05/10/25 Range/Units 09:58 10:00 13:42 WBC 6.72 (4.8-10.8) K/ul RBC 4.54 (4.20-5.40) M/uL Hgb 13.1 (12.0-16.0) g/dL Hct 39.4 (37.0-47.0) % MCV 86.8 (80.0-100.0) fL MCH 28.9 (25.0-34.0) pg MCHC 33.2 (32.0-36.0) g/dL RDW Std Deviation 41.0 (36.4-46.3) fL RDW Coeff of Von 13.0 (11.5-14.5) % Plt Count 317 (130-400) K/uL MPV 9.2 L (9.4-12.4) fL Immature Gran % (Auto) 0.3 % Neut % (Auto) 72.7 % Lymph % (Auto) 16.8 % [place] % (Auto) 7.6 % Eos % (Auto) 1.0 % Baso % (Auto) 1.6 % Neut # (Auto) 4.88 (1.40-6.50) K/uL Lymph # (Auto) 1.13 L (1.20-3.40) K/uL [place] # (Auto) 0.51 (0.11-0.59) K/uL Eos # (Auto) 0.07 (0.00-0.50) K/uL Baso # (Auto) 0.11 (0.00-0.20) K/uL Immature Gran # (Auto) 0.02 (0.01-0.20) K/uL PT 10.9 (9.0-12.0) Seconds INR 1.0 (0.9-1.1) APTT 25 (21-31) Seconds PTT Ratio 0.9 Sodium 138 (136-145) mmol/L Potassium 4.3 (3.5-5.1) mmol/L Chloride 102 (98-107) mmol/L Carbon Dioxide 30 (21-32) mmol/L Anion Gap 6 (3-11) BUN 23 (6-23) mg/dl Creatinine 0.94 (0.6-1.2) mg/dl Est Cr Clr Drug Dosing 63.7 ml/min eGFR 69.90 BUN/Creatinine Ratio 24.5 H (10-20) Glucose 95 (70-99(Fasting)) mg/dl Lactate 0.9 (0.4-2.0) mmol/L Calcium 9.8 (8.6-10.3) mg/dl Magnesium 2.1 (1.7-2.4) mg/dl Total Bilirubin 0.5 (0.2-1.0) mg/dl AST 19 (13-39) U/L ALT 17 (7-52) U/L Alkaline Phosphatase 87 (34-104) U/L Troponin I High Sens 3.0 (0-14) pg/ml C-Reactive Protein < 0.50 (0-0.5) mg/dl Total Protein 7.8 (6.0-8.3) gm/dl Albumin 4.1 (3.4-5.0) gm/dl Globulin 3.7 (2.5-4.0) gm/dl Albumin/Globulin Ratio 1.1 (0.9-2) Lipase 38 (11-82) U/L Procalcitonin 0.04 (0-0.5) ng/ml TSH 7.635 H (0.300-4.500) uIu/ml Free T4 0.98 (0.61-1.60) ng/dl Urine Color Yellow Urine Appearance Clear (Clear) Urine pH 5.5 (4.5-7.5) Ur Specific [place] 1.022 (1.000-1.030) Urine Protein Negative (Negative) Urine Glucose (UA) Negative (Negative) Urine Ketones Trace H (Negative) Urine Blood Negative (Negative) Urine Nitrite Negative (Negative) Urine Bilirubin Negative (Negative) Urine Urobilinogen Negative (Negative) Ur Leukocyte Esterase Negative (Negative) Urine Comment Adenovirus (PCR) Not Detected (NotDetected) B. pertussis DNA (PCR) Not Detected (NotDetected) B.parapertussis DNA PCR Not Detected (NotDetected) Lyme Disease Screen Equivocal H (Negative) Lyme Tier 2 IgG Confirm Positive H (Negative) Lyme Tier 2 IgM Confirm Positive H (Negative) C. pneumoniae DNA (PCR) Not Detected (NotDetected) Coronavirus OC43 (PCR) Not Detected (NotDetected) Coronavirus HKU1 (PCR) Not Detected (NotDetected) Coronavirus 229E (PCR) Not Detected (NotDetected) SARS-CoV-2 (PCR) Not Detected (NotDetected) Coronavirus NL63 (PCR) Not Detected (NotDetected) Human Metapneumovir PCR Not Detected (NotDetected) Influenza Type A (PCR) Not Detected (NotDetected) Influenza Type B (PCR) Not Detected (NotDetected) M. pneumoniae (PCR) Not Detected (NotDetected) Parainfluenza 1 (PCR) Not Detected (NotDetected) Parainfluenza 2 (PCR) Not Detected (NotDetected) Parainfluenza 3 (PCR) Not Detected (NotDetected) Parainfluenza 4 (PCR) Not Detected (NotDetected) RSV (PCR) Not Detected (NotDetected) Entero/Rhino (PCR) Not Detected (NotDetected) Imaging Data Radiologist's Impression: Abdomen/Pelvis CT 05/10/25 09:52 CT OF THE ABDOMEN AND PELVIS WITHOUT CONTRAST CLINICAL HISTORY: Right lower back pain radiating into right lower extremity COMPARISON STUDY: No previous studies for comparison. TECHNIQUE: Axial images of the abdomen and pelvis were obtained without IV contrast. Images were reviewed in the axial, sagittal, and coronal planes. Automated exposure control was utilized for the study. A dose lowering technique was utilized adhering to the principles of ALARA. FINDINGS: ASD occluder device is incidentally noted. The heart is moderately enlarged. Visualized lung bases are unremarkable. There is no pneumatosis, free air or portal venous gas. No renal, ureteral or bladder calculi are present. Evaluation of the remainder of the abdomen and pelvis is suboptimal on this unenhanced exam. Liver, spleen, adrenal glands and pancreas are unremarkable. No biliary or pancreatic ductal dilatation is present. There is no peripancreatic or pericholecystic infiltration. Caliber of small and large bowel is normal. The appendix is normal. No bowel wall thickening is identified on unenhanced exam but is no lymphadenopathy or ascites. Moderate degenerative changes within the sacroiliac joints and symphysis pubis are noted with subchondral sclerosis. There are no fractures within the lumbar spine, pelvis or hips. Mild degenerative disc disease within lumbar spine is noted with mild disc bulges. Central canal and neural foramen are suboptimally assessed given CT technique. However, there is no evidence for central canal stenosis by CT. There is mild multilevel neural foraminal stenosis. IMPRESSION: 1. No urinary calculi or hydronephrosis. 2. No acute process within the abdomen or pelvis on unenhanced exam. 3. No bowel obstruction. Normal appendix. 4. Mild degenerative changes within the lumbar spine. 5. Moderate degenerative changes at the symphysis pubis and the bilateral sacroiliac joints. ACT 112: Negative or not required by law. Electronically signed by: Oc Salguero M.D. 05/10/2025 11:[address] 05/10/25 09:52 CT SCAN OF THE BRAIN WITHOUT IV CONTRAST CLINICAL HISTORY: Headache. COMPARISON STUDY: MRI of the brain December 12, 2023. Head CT March 18, 2025. TECHNIQUE: Unenhanced axial CT scan of the brain was performed from the vertex to the skull base. A dose lowering technique was utilized adhering to the principles of ALARA. FINDINGS: Brain parenchyma: No acute intracranial hemorrhage, midline shift or mass effect is present. Ballesteros-white matter differentiation is preserved. There are no extra- axial fluid collections. There are no findings to suggest acute dural sinus thrombosis or acute territorial infarct. Ventricles, sulci, cisterns: There is no hydrocephalus. The basal cisterns are patent. Calvarium: Unremarkable. Sinuses and mastoids: The visualized paranasal sinuses are clear. The mastoid air cells are well pneumatized. Orbits: The bony orbits are grossly intact. IMPRESSION: No acute intracranial findings. ACT 112: Negative or not required by law. Electronically signed by: Oc Salguero M.D. 05/10/2025 11:12 AM [facility] Narrative Patient was seen and evaluated as above in room D04b. Review was performed of triage nursing notes and vital signs. I did review pertinent previous visits and patient history. After obtaining a thorough history and physical examination the above work up was performed. Patient presents to us today for evaluation. No neurovascular deficits on assessment. Patient is no focal deficit. Patient BP soft on presentation in the low 90s systolic. Patient appears volume depleted, clinically dry. Labs show no leukocytosis or concerning anemia. Coags without significant disturbance. No evidence of kidney or liver failure. CRP, troponin all within normal range. There is a normal lipase and procalcitonin. TSH elevated with a normal free T4. Urinalysis without concern of UTI. Lyme screen equivocal with tier 2 confirmatory testing positive with both IgG and IgM. Bio[employer] panel negative. CT head Noncon as above. This was essentially negative for acute process. CT scan abdomen/pelvis obtained as above also Noncon noting patient allergy. This was overall negative for acute process. EKG per my interpretation reveals normal sinus rhythm at a rate of 67 bpm. QTc 416. QRS 72. No ST elevation on this rhythm tracing. The patient while here was medicated with IV fluids, she also notes she does well with IV Benadryl, IV Tylenol and a steroid. These were all added and she felt better. However did get up to go the bathroom and felt a bit unwell. We discussed options. We are quite limited on antibiotic options for treatment of Lyme. She notes she cannot really tolerate doxycycline. Unclear if she can tolerate cephalosporin but did do well with IV ceftriaxone here. Penicillins are on the allergy list as well. At the present time we will proceed with further evaluation and management in the inpatient setting. Case discussed with the hospitalist service. Please read further documentation regarding her stay. GCS: 15 In the evaluation and treatment of this patient the following differential diagnoses were entertained: CVA, TIA, Lyme disease, electrolyte disturbance, dehydration, lumbar to colopathy, cauda equina syndrome, among others Impression & Plan Headache, Lumbar radiculopathy, Lyme disease, Nausea and vomiting Discharge Plan Visit Data Chief Complaint: Back Injury/Pain Stated Complaint: VOMITING, HEADACHE, BACK PAIN ED Provider: Humberto Bennett ED Midlevel Provider: Teddy Tee Discharge Problem: Headache, Lumbar radiculopathy, Lyme disease, Nausea and vomiting Patient Disposition: Admitted As Inpatient Condition: Good Discharge Instructions Interventions: ED Discharge Assessment Last Done: 05/10/25 21:31 Addendum May 11, 2025 09:14 I was consulted by the Advanced Practice Provider and was substantively involved in the patient's visit.This includes aspects of the HPI, MDM, diagnostic interpretations, and disposition/plan. I discussed the case with the KARI and agree with the findings and plan as documented in KARI Nay's note.
[2025-05-10] MEDS: SODIUM CHLORIDE 0.9% 1,000 ML IV ONE (10:08)
[2025-05-10] MEDS: ACETAMINOPHEN 1,000 MG/100 ML VIAL IV STA (10:08)
[2025-05-10] MEDS: diphenhydrAMINE 50 MG/ML VIAL IV STA (10:09)
[2025-05-10 10:25] LABS: Hematocrit (blood only) 39.4 % (37.0-47.0); Hemoglobin 13.1 g/dL (12.0-16.0); Immature Granulocytes # (auto) 0.02 K/uL (0.01-0.20); Immature Granulocytes % (auto) 0.3 %; Mean Corpuscular Hemoglobin 28.9 pg (25.0-34.0); Mean Corpuscular Volume 86.8 fL (80.0-100.0); Platelet Count 317 K/uL (130-400); RDW Standard Deviation 41.0 fL (36.4-46.3); Red Blood Count 4.54 M/uL (4.20-5.40); White Blood Count 6.72 K/ul (4.8-10.8)
[2025-05-10 10:42] LABS: Alanine Aminotransferase 17 U/L (7-52); Albumin Globulin Ratio 1.1 (0.9-2); Albumin Level 4.1 gm/dl (3.4-5.0); Alkaline Phosphatase 87 U/L (34-104); Anion Gap 6 (3-11); Bilirubin,Total 0.5 mg/dl (0.2-1.0); Blood Urea Nitrogen 23 mg/dl (6-23); Calcium 9.8 mg/dl (8.6-10.3); Carbon Dioxide 30 mmol/L (21-32); Chloride 102 mmol/L (98-107); Creatinine Clr Calc Pharmacy 63.7 ml/min; Globulin 3.7 gm/dl (2.5-4.0); Glucose 95 mg/dl (70-99(Fasting)); Lipase 38 U/L (11-82); Magnesium 2.1 mg/dl (1.7-2.4); Potassium 4.3 mmol/L (3.5-5.1); Sodium 138 mmol/L (136-145); Total Protein 7.8 gm/dl (6.0-8.3)
[2025-05-10 10:48] LABS: Procalcitonin 0.04 ng/ml (0-0.5)
[2025-05-10 10:50] LABS: INR 1.0 (0.9-1.1); Partial Thromboplastin Time 25 Seconds (21-31); Prothrombin Time 10.9 Seconds (9.0-12.0)
[2025-05-10 10:58] LABS: Thyroid Stimulating Hormone 7.635 uIu/ml (0.300-4.500)
[2025-05-10 11:13] LABS: Lyme Screen Rflx Confirmation Equivocal (Negative)
--- NOTE | 2025-05-10 11:13 | CT Scan Report ---
CT SCAN OF THE BRAIN WITHOUT IV CONTRAST CLINICAL HISTORY: Headache. COMPARISON STUDY: MRI of the brain December 12, 2023. Head CT March 18, 2025. TECHNIQUE: Unenhanced axial CT scan of the brain was performed from the vertex to the skull base. A dose lowering technique was utilized adhering to the principles of ALARA. FINDINGS: Brain parenchyma: No acute intracranial hemorrhage, midline shift or mass effect is present. Ballesteros-whi te matter differentiation is preserved. There are no extra-axial fluid collections. There are no find ings to suggest acute dural sinus thrombosis or acute territorial infarct. Ventricles, sulci, cisterns: There is no hydrocephalus. The basal cisterns are patent. Calvarium: Unremarkable. Sinuses and mastoids: The visualized paranasal sinuses are clear. The mastoid air cells are well pneu matized. Orbits: The bony orbits are grossly intact. IMPRESSION: No acute intracranial findings. ACT 112: Negative or not required by law. Electronically signed by: Oc Salguero M.D. 05/10/2025 11:12 AM
[2025-05-10 11:15] LABS: Chlamydia pneumoniae PCR Not Detected (NotDetected); Coronavirus 229E PCR Not Detected (NotDetected); Coronavirus CoV-2 (COVID19)PCR Not Detected (NotDetected); Coronavirus HKU1 PCR Not Detected (NotDetected); Coronavirus NL63 PCR Not Detected (NotDetected); Coronavirus OC43PCR Not Detected (NotDetected); Human Metapneumovirus PCR Not Detected (NotDetected); Parainfluenza Virus 1 PCR Not Detected (NotDetected); Parainfluenza Virus 2 PCR Not Detected (NotDetected); Parainfluenza Virus 3 PCR Not Detected (NotDetected); Parainfluenza Virus 4 PCR Not Detected (NotDetected); Respiratory Syncytial VirusPCR Not Detected (NotDetected); Rhinovirus/Enterovirus PCR Not Detected (NotDetected)
--- NOTE | 2025-05-10 11:19 | CT Scan Report ---
CT OF THE ABDOMEN AND PELVIS WITHOUT CONTRAST CLINICAL HISTORY: Right lower back pain radiating into right lower extremity COMPARISON STUDY: No previous studies for comparison. TECHNIQUE: Axial images of the abdomen and pelvis were obtained without IV contrast. Images were revi ewed in the axial, sagittal, and coronal planes. Automated exposure control was utilized for the jose rafael dy. A dose lowering technique was utilized adhering to the principles of ALARA. FINDINGS: ASD occluder device is incidentally noted. The heart is moderately enlarged. Visualized vonda g bases are unremarkable. There is no pneumatosis, free air or portal venous gas. No renal, ureteral or bladder calculi are present. Evaluation of the remainder of the abdomen and pelvis is suboptimal o n this unenhanced exam. Liver, spleen, adrenal glands and pancreas are unremarkable. No biliary or pa ncreatic ductal dilatation is present. There is no peripancreatic or pericholecystic infiltration. Ca liber of small and large bowel is normal. The appendix is normal. No bowel wall thickening is identif ied on unenhanced exam but is no lymphadenopathy or ascites. Moderate degenerative changes within the sacroiliac joints and symphysis pubis are noted with subchondral sclerosis. There are no fractures w ithin the lumbar spine, pelvis or hips. Mild degenerative disc disease within lumbar spine is noted w ith mild disc bulges. Central canal and neural foramen are suboptimally assessed given CT technique. However, there is no evidence for central canal stenosis by CT. There is mild multilevel neural warren inal stenosis. IMPRESSION: 1. No urinary calculi or hydronephrosis. 2. No acute process within the abdomen or pelvis on unenhanced exam. 3. No bowel obstruction. Normal appendix. 4. Mild degenerative changes within the lumbar spine. 5. Moderate degenerative changes at the symphysis pubis and the bilateral sacroiliac joints. ACT 112: Negative or not required by law. Electronically signed by: Oc Salguero M.D. 05/10/2025 11:16 AM
[2025-05-10 11:34] LABS: T4 Free Thyroxine 0.98 ng/dl (0.61-1.60)
[2025-05-10 11:55] LABS: Lyme Ab IgG 2nd Tier Confirm Positive (Negative)
[2025-05-10 11:56] LABS: Lyme Ab IgM 2nd Tier Confirm Positive (Negative)
[2025-05-10] MEDS: dexAMETHasone**PF** 10 MG/ML VIAL IV ONE (11:57)
[2025-05-10 14:01] LABS: Appearance Urine Clear (Clear); Glucose Urine UA Negative (Negative)
[2025-05-10] MEDS: cefTRIAXone SODIUM 2,000 MG/50 ML BAG IV STA (14:41)
--- NOTE | 2025-05-10 16:01 | History & Physical Report ---
Date of Service May 10, 2025 Assessment & Plan (1) Migraine headache: (2) Diabetes: (3) Fibromyalgia: (4) Headache: (5) GERD (gastroesophageal reflux disease): (6) Anxiety: (7) SIRS (systemic inflammatory response syndrome): Plan #SIRS #Nausea/vomiting/ myalgias #Positive Lyme serology - Progressive generalized signs of illness. No clear source at this point. This appears to be a new seroconversion for Lyme disease as she was checked after the tick bite couple months ago. -Given intolerance to doxycycline and other alternatives Rocephin was initiated. -CRP added, serial inflammatory markers to monitor for trend -Observation, telemetry -Continue Rocephin -Antiemetics -responded well to volume expansion will continue normal saline at 125 cc/h through the night- -Anaplasma titer sent, if this is positive doxycycline would be the only meaningful antibiotics. Her previous intolerance was vision changes. Will reassess as it was not a true anaphylactic type allergy depending on the Anaplasma result -ESR with AM labs #Headaches - Consistent with prior headaches. No signs of nuchal rigidity or meningitis, improving after IV Tylenol and volume expansion - head CT unremarkable - continue to monitor #Hypothyroid -send free T4, subcilnical at this time #Type 2 diabetes -Diabetic diet, sliding scale initially, A1c #History of fibromyalgia -continue baclofen, duloxetine #History of peripheral edema -Continue Lasix #FEN NS as above, diabetic diet #CODE STATUS -Full Code per her wishes. History of Present Illness Chief Complaint: N/V Malaise Primary Care Provider: Saniya Sim PA-C 60-year-old female history of type 2 diabetes, fibromyalgia, recurrent migraine headaches, TBI about a year ago, multiple allergies and GERD presents to the emergency department with "vomiting, headache, back pain". The patient notes that this past Thursday evening, 05/06/2025 she developed a headache. She denies any trauma or injury. This does feel similar to previous headaches. She notes that she continues to vomit and is having trouble keeping down any food or fluid. She also notes right low back pain radiating down the right leg. She notes this is not the worst headache of her life. No anticoagulant use. She notes remote history of stroke around age 31. She questions if she has had a fever but none at the present time. Reported tick bite a few months ago. Subjective fevers of the last 24 hours. In the emergency department she was mildly hypotensive. Responded well to volume expansion. Initial lab workup showed no significant acute abnormalities. Her Lyme screen was equivocal and IgM and IgG were both reactive. After volume resuscitation she was still feeling quite weak. Having difficulty with ambulation. Some dizziness and orthostasis. Secondary to the persistent symptoms, difficulty with other oral based medications to cover Lyme and possibly anaplasmosis she was referred for admission, ongoing IV antibiotic therapy. Follow-up cultures. Selection definitive antibiotics. Allergies Allergy/AdvReac Type Severity Reaction Status Date / Time Gadolinium-Containing Allergy Severe SEVERE Verified 10/16/21 00:48 Contrast Medi PERIORBITAL EDEMA Iodinated Contrast Media Allergy Severe "SWELLING: Verified 10/16/21 00:48 FACE, TONGUE, THROAT" Pork/Porcine Containing Allergy Severe THROAT Verified 10/16/21 00:48 Products SWELLS amoxicillin Allergy Intermediate Hives Verified 10/16/21 00:48 black pepper Allergy Intermediate VOMITING Verified 10/16/21 00:48 buprenorphine Allergy Intermediate Hives Verified 10/16/21 00:48 morphine Allergy Intermediate Hives Verified 10/16/21 00:48 nitroglycerin Allergy Intermediate Hives Verified 10/16/21 00:48 Penicillins Allergy Intermediate Hives Verified 10/16/21 00:48 phenytoin Allergy Intermediate RASH Verified 10/16/21 00:48 prochlorperazine Allergy Intermediate RASH Verified 10/16/21 00:48 citalopram Allergy Unknown UNKNOWN Verified 10/16/21 00:48 codeine Allergy Unknown Unknown Verified 10/16/21 00:48 metoclopramide [From Reglan] AdvReac Severe TACHYCARDIA, Verified 10/16/21 00:48 HYPERTENSION sumatriptan AdvReac Severe SEVERE Verified 10/16/21 00:48 VOMITING doxycycline AdvReac Intermediate VISION Verified 10/16/21 00:48 CHANGES meloxicam AdvReac Intermediate MOUTH Verified 10/16/21 00:48 SORES & BLEEDING meperidine AdvReac Intermediate BLURRED Verified 10/16/21 00:48 VISION/SEVERE FEVER sulfamethoxazole AdvReac Intermediate Vomiting Verified 10/16/21 00:48 [From Bactrim] trimethoprim [From Bactrim] AdvReac Intermediate Vomiting Verified 10/16/21 00:48 SUTILAINS Allergy Severe SEVERE Uncoded 10/16/21 00:48 PERIORBITAL EDEMA CLORAX BLEACH Allergy Intermediate RASH, Uncoded 10/16/21 00:48 HEADACHE Salt AdvReac Intermediate VOMITING Uncoded 10/16/21 00:48 Home Medications Medication Instructions Recorded Confirmed Type albuterol sulfate 90 mcg/actuation 2 puff inhalation Q4H PRN 06/26/20 03/18/25 History aerosol inhaler Shortness Of Breath baclofen 20 mg tablet 20 mg PO BID 06/26/20 03/18/25 History acetaminophen 650 mg 650 mg PO BID PRN Pain 10/16/21 03/18/25 History tablet,extended release (Tylenol 8 Hour) furosemide 20 mg tablet (Lasix) 20 mg PO DAILY PRN Edema 10/16/21 03/18/25 History pantoprazole 40 mg tablet,delayed 40 mg PO BID 10/16/21 03/18/25 History release multivitamin 1 tab PO DAILY 01/03/23 03/18/25 History ondansetron 4 mg disintegrating 4 mg PO Q6H PRN nausea and 01/03/23 03/18/25 Rx tablet vomiting #20 tabs zolmitriptan 5 mg nasal spray 1 spray intranasal BID PRN 01/03/23 03/18/25 History Migraine Headache Past Med/Surg History Problem List (Updated 05/10/25 @ 16:01 by Brayden Pearson MD) SIRS (systemic inflammatory response syndrome) No significant past surgical history Allergic reaction (Acute) Migraine headache (Chronic) Diabetes (Chronic) Fibromyalgia (Chronic) Headache (Acute) Medical History GERD (gastroesophageal reflux disease) Situational stress Anxiety Atypical chest pain Social History Smoking Status: Never smoker Preferred Language: Guamanian marital status: marital status details: but living with spouse Current Living Situation: Spouse Feels Safe at Home: Yes Review of Systems Review of Systems: Emesis since Thursday as noted in HPI. Generalized myalgias and malaise over the last 3 days. Otherwise full 10 point review of system was conducted and was negative. Physical Exam Physical Exam: GENERAL NAD. Openly conversive HEAD - NC/AT. EYES - PERRL with EOMI bilaterally. Sclera anicteric. MOUTH/OROPHARYNX - MMM NECK - Neck with FROM. No nuchal rigidity. No Adenopathy LUNGS - CTAB CARDIAC - RRR, No M/R/G ABDOMEN - Normal BS No tenderness,no palpable masses, hepatosplenomegaly, or fluid level/wave. EXTREMITIES - No clubbing or peripheral cyanosis. NEUROLOGIC - Cranial nerves II through XII grossly intact. No focal deficits SKIN - Without rashes. No meningeal or petechial rash. Results & Data Results & Data Vital Signs (Past 12 Hours) Vital Signs Temp Pulse Pulse Resp BP BP Pulse Ox 05/10/25 14:43 74 20 114/61 05/10/25 11:59 60 18 112/63 96 05/10/25 10:02 94 05/10/25 09:38 36.7 C 72 20 93/66 L 97 O2 Del Method 05/10/25 14:43 05/10/25 11:59 Room Air 05/10/25 10:02 Room Air 05/10/25 09:38 Room Air Laboratory Results 05/10/25 10:17 Aerobic Blood Culture - Pending Blood Anaerobic Blood Culture - Pending 05/10/25 10:00 Aerobic Blood Culture - Pending Blood Anaerobic Blood Culture - Pending 05/10/25 05/10/25 05/10/25 13:42 10:00 09:58 WBC 6.72 RBC 4.54 Hgb 13.1 Hct 39.4 MCV 86.8 MCH 28.9 MCHC 33.2 RDW Std Deviation 41.0 RDW Coeff of Von 13.0 Plt Count 317 MPV 9.2 L Immature Gran % (Auto) 0.3 Neut % (Auto) 72.7 Lymph % (Auto) 16.8 Kimball % (Auto) 7.6 Eos % (Auto) 1.0 Baso % (Auto) 1.6 Neut # (Auto) 4.88 Lymph # (Auto) 1.13 L Kimball # (Auto) 0.51 Eos # (Auto) 0.07 Baso # (Auto) 0.11 Immature Gran # (Auto) 0.02 PT 10.9 INR 1.0 APTT 25 PTT Ratio 0.9 Sodium 138 Potassium 4.3 Chloride 102 Carbon Dioxide 30 Anion Gap 6 BUN 23 Creatinine 0.94 Est Cr Clr Drug Dosing 63.7 eGFR 69.90 BUN/Creatinine Ratio 24.5 H Glucose 95 Lactate 0.9 Calcium 9.8 Magnesium 2.1 Total Bilirubin 0.5 AST 19 ALT 17 Alkaline Phosphatase 87 Troponin I High Sens 3.0 Total Protein 7.8 Albumin 4.1 Globulin 3.7 Albumin/Globulin Ratio 1.1 Lipase 38 Procalcitonin 0.04 TSH 7.635 H Free T4 0.98 Urine Color Yellow Urine Appearance Clear Urine pH 5.5 Ur Specific [place] 1.022 Urine Protein Negative Urine Glucose (UA) Negative Urine Ketones Trace H Urine Blood Negative Urine Nitrite Negative Urine Bilirubin Negative Urine Urobilinogen Negative Ur Leukocyte Esterase Negative Urine Comment Adenovirus (PCR) Not Detected B. pertussis DNA (PCR) Not Detected B.parapertussis DNA PCR Not Detected Lyme Disease Screen Equivocal H Lyme Tier 2 IgG Confirm Positive H Lyme Tier 2 IgM Confirm Positive H C. pneumoniae DNA (PCR) Not Detected Coronavirus OC43 (PCR) Not Detected Coronavirus HKU1 (PCR) Not Detected Coronavirus 229E (PCR) Not Detected SARS-CoV-2 (PCR) Not Detected Coronavirus NL63 (PCR) Not Detected Human Metapneumovir PCR Not Detected Influenza Type A (PCR) Not Detected Influenza Type B (PCR) Not Detected M. pneumoniae (PCR) Not Detected Parainfluenza 1 (PCR) Not Detected Parainfluenza 2 (PCR) Not Detected Parainfluenza 3 (PCR) Not Detected Parainfluenza 4 (PCR) Not Detected RSV (PCR) Not Detected Entero/Rhino (PCR) Not Detected Diagnostic Findings Abdomen/Pelvis CT 05/10/25 09:52 CT OF THE ABDOMEN AND PELVIS WITHOUT CONTRAST CLINICAL HISTORY: Right lower back pain radiating into right lower extremity COMPARISON STUDY: No previous studies for comparison. TECHNIQUE: Axial images of the abdomen and pelvis were obtained without IV contrast. Images were reviewed in the axial, sagittal, and coronal planes. Automated exposure control was utilized for the study. A dose lowering technique was utilized adhering to the principles of ALARA. FINDINGS: ASD occluder device is incidentally noted. The heart is moderately enlarged. Visualized lung bases are unremarkable. There is no pneumatosis, free air or portal venous gas. No renal, ureteral or bladder calculi are present. Evaluation of the remainder of the abdomen and pelvis is suboptimal on this unenhanced exam. Liver, spleen, adrenal glands and pancreas are unremarkable. No biliary or pancreatic ductal dilatation is present. There is no peripancreatic or pericholecystic infiltration. Caliber of small and large bowel is normal. The appendix is normal. No bowel wall thickening is identified on unenhanced exam but is no lymphadenopathy or ascites. Moderate degenerative changes within the sacroiliac joints and symphysis pubis are noted with subchondral sclerosis. There are no fractures within the lumbar spine, pelvis or hips. Mild degenerative disc disease within lumbar spine is noted with mild disc bulges. Central canal and neural foramen are suboptimally assessed given CT technique. However, there is no evidence for central canal stenosis by CT. There is mild multilevel neural foraminal stenosis. IMPRESSION: 1. No urinary calculi or hydronephrosis. 2. No acute process within the abdomen or pelvis on unenhanced exam. 3. No bowel obstruction. Normal appendix. 4. Mild degenerative changes within the lumbar spine. 5. Moderate degenerative changes at the symphysis pubis and the bilateral sacroiliac joints. ACT 112: Negative or not required by law. Electronically signed by: Oc Salguero M.D. 05/10/2025 11:[address] 05/10/25 09:52 CT SCAN OF THE BRAIN WITHOUT IV CONTRAST CLINICAL HISTORY: Headache. COMPARISON STUDY: MRI of the brain December 12, 2023. Head CT March 18, 2025. TECHNIQUE: Unenhanced axial CT scan of the brain was performed from the vertex to the skull base. A dose lowering technique was utilized adhering to the principles of ALARA. FINDINGS: Brain parenchyma: No acute intracranial hemorrhage, midline shift or mass effect is present. Ballesteros-white matter differentiation is preserved. There are no extra- axial fluid collections. There are no findings to suggest acute dural sinus thrombosis or acute territorial infarct. Ventricles, sulci, cisterns: There is no hydrocephalus. The basal cisterns are patent. Calvarium: Unremarkable. Sinuses and mastoids: The visualized paranasal sinuses are clear. The mastoid air cells are well pneumatized. Orbits: The bony orbits are grossly intact. IMPRESSION: No acute intracranial findings. ACT 112: Negative or not required by law. Electronically signed by: Oc Salguero M.D. 05/10/2025 11:12 AM PG Care Time/CCT Total # of Minutes Spent Total Time Spent with Patient: Total time spent is greater than 50% in coordination of care (as documented) at patient's floor/unit and/or counseling patient: Coding Level of Care Code 48730 INT INP/OBS CARE Diagnoses Migraine headache G43.909 Diabetes E11.9 Fibromyalgia M79.7 Headache R51 GERD (gastroesophageal reflux disease) K21.9 Esophagitis presence: esophagitis presence not specified Anxiety F41.9 SIRS (systemic inflammatory response syndrome) R65.10 (5) GERD (gastroesophageal reflux disease) Esophagitis presence: esophagitis presence not specified Qualified Code(s): K21.9 - Gastro-esophageal reflux disease without esophagitis
[2025-05-10] MEDS ORDERED: GLUCOSE 10 TAB/TUBE PO PRN (18:46)
[2025-05-10] MEDS ORDERED: CARBOHYDRATES FOR HYPOGLYCEMIA PO PRN (18:46)
[2025-05-10] MEDS ORDERED: MAGNESIUM HYDROXIDE SUSP 30 ML UDC PO PRN (18:46)
[2025-05-10] MEDS ORDERED: GLUCOSE 40% GEL 15 GM TUBE PO PRN (18:46)
[2025-05-10] MEDS ORDERED: ALBUTEROL HFA 8 GM INHALER INH PRN (18:46)
[2025-05-10] MEDS ORDERED: DEXTROSE 50% 50 ML SYRINGE IV PRN (18:46)
[2025-05-10] MEDS ORDERED: POLYETHYLENE (MIRALAX) 17 GM PACK PO PRN (18:46)
[2025-05-10] MEDS ORDERED: GLUCAGON FOR INJ 1 MG VIAL SQ PRN (18:46)
[2025-05-10] MEDS: SODIUM CHLORIDE 0.9% 500 ML IV SCH (19:07)
[2025-05-10] MEDS: BACLOFEN 20 MG TAB PO SCH (20:46)
[2025-05-10] MEDS: INSULIN ASPART PER UNIT CHARGE SC SCH (20:51)
[2025-05-10] MEDS: HEPARIN SOD 5,000 UNIT/0.5 ML VIAL SQ SCH (20:55)
[2025-05-11] MEDS: ACETAMINOPHEN 325 MG TAB PO PRN (00:04)
[2025-05-11 07:13] LABS: Hematocrit (blood only) 36.1 % (37.0-47.0); Hemoglobin 12.1 g/dL (12.0-16.0); Immature Granulocytes # (auto) 0.02 K/uL (0.01-0.20); Immature Granulocytes % (auto) 0.3 %; Mean Corpuscular Hemoglobin 28.6 pg (25.0-34.0); Mean Corpuscular Volume 85.3 fL (80.0-100.0); Platelet Count 287 K/uL (130-400); RDW Standard Deviation 39.8 fL (36.4-46.3); Red Blood Count 4.23 M/uL (4.20-5.40); White Blood Count 6.02 K/ul (4.8-10.8)
[2025-05-11 08:09] LABS: Alanine Aminotransferase 12 U/L (7-52); Albumin Globulin Ratio 1.3 (0.9-2); Albumin Level 3.7 gm/dl (3.4-5.0); Alkaline Phosphatase 70 U/L (34-104); Anion Gap 5 (3-11); Bilirubin,Total 0.4 mg/dl (0.2-1.0); Blood Urea Nitrogen 19 mg/dl (6-23); Calcium 8.9 mg/dl (8.6-10.3); Carbon Dioxide 30 mmol/L (21-32); Chloride 105 mmol/L (98-107); Creatinine Clr Calc Pharmacy 81.7 ml/min; Globulin 2.8 gm/dl (2.5-4.0); Glucose 119 mg/dl (70-99(Fasting)); Magnesium 2.0 mg/dl (1.7-2.4); Potassium 3.8 mmol/L (3.5-5.1); Sodium 140 mmol/L (136-145); Total Protein 6.5 gm/dl (6.0-8.3)
--- NOTE | 2025-05-11 13:53 | Hospitalist Progress Note ---
Date of Service May 11, 2025 Assessment & Plan (1) Migraine headache: (2) Diabetes: (3) Fibromyalgia: (4) Headache: (5) GERD (gastroesophageal reflux disease): (6) Anxiety: (7) SIRS (systemic inflammatory response syndrome): Plan #SIRS #Nausea/vomiting/ myalgias #Positive Lyme serology - Progressive generalized signs of illness. No clear source at this point. This appears to be a new seroconversion for Lyme disease as she was checked after the tick bite couple months ago. -Given intolerance to doxycycline and other alternatives Rocephin was initiated. -CRP added, serial inflammatory markers to monitor for trend -Observation, telemetry -Continue Rocephin -Antiemetics -responded well to volume expansion will continue normal saline at 125 cc/h through the night- -Anaplasma titer sent, if this is positive doxycycline would be the only meaningful antibiotics. Her previous intolerance was vision changes. Will reassess as it was not a true anaphylactic type allergy depending on the Anaplasma result -ESR with AM labs - Labs stable, clinically improving, near baseline. See discussion follow-up below for Rocephin. If she does not tolerate the Rocephin after this dose we may need to consult infectious disease for viable alternatives #Vision changes/hallucination - Not classic hallucinations, better described as lights in her right peripheral vision which she interpreted as cats and other things. Absent when she would open her eyes, and attributed to the antibiotics per patient - Resolved at this time, suspect dexamethasone over Rocephin - Will move her Rocephin dose up until this midday. Monitor closely for re currence - If she is unable to tolerate the Rocephin although this is not a true allergy we will have to find an alternative for Lyme and possibly anaplasmosis that she can actually tolerate - We may need to just do an atypical antipsychotic or other preventative medicines if indeed this does continue #Headaches - Consistent with prior headaches. No signs of nuchal rigidity or meningitis, improving after IV Tylenol and volume expansion - head CT unremarkable - continue to monitor - Improved #Hypothyroid -send free T4, subcilnical at this time #Type 2 diabetes -Diabetic diet, sliding scale initially, A1c #History of fibromyalgia -continue baclofen, duloxetine #History of peripheral edema -Continue Lasix #FEN NS as above, diabetic diet #CODE STATUS -Full Code per her wishes. Admission and Anticipated Discharge Date Admission Date: May 10, 2025 Subjective Doing okay this morning. Somewhat concerned because she thought through the night that she was having some flashing lights and thought she was seeing cats and some other things in the peripheral vision to the right. She attributes this to the antibiotic. She has never had Rocephin before she states she had a very similar reaction to doxycycline but it was in the other eye. Otherwise her symptoms have completely resolved. She stated when even it was happening last night when she would open her eyes they would resolved. She was very lucid and rational about this. Had no headache no rash no shortness of breath or other concerning signs or symptoms. Otherwise eating and drinking okay. Physical Exam Physical Exam: GENERAL NAD. Openly conversive HEAD - NC/AT. EYES - PERRL with EOMI bilaterally. Sclera anicteric. MOUTH/OROPHARYNX - MMM NECK - Neck with FROM. No nuchal rigidity. No Adenopathy LUNGS - CTAB CARDIAC - RRR, No M/R/G ABDOMEN - Normal BS No tenderness,no palpable masses, hepatosplenomegaly, or fluid level/wave. EXTREMITIES - No clubbing or peripheral cyanosis. NEUROLOGIC - Cranial nerves II through XII grossly intact. No focal deficits SKIN - Without rashes. No meningeal or petechial rash. Results & Data Results & Data Vital Signs (Past 12 Hours) Vital Signs Temp Pulse Resp BP Pulse Ox O2 Del Method 05/11/25 08:46 36.3 C L 76 18 106/69 98 Room Air Laboratory Results 05/10/25 10:00 Aerobic Blood Culture - Preliminary Blood No growth in Aerobic bottle after 24 hours. Anaerobic Blood Culture - Preliminary No growth in Anaerobic bottle after 24 hours. 05/10/25 10:17 Aerobic Blood Culture - Preliminary Blood No growth in Aerobic bottle after 24 hours. Anaerobic Blood Culture - Preliminary No growth in Anaerobic bottle after 24 hours. 05/11/25 05/11/25 05/11/25 12:12 08:12 06:58 WBC 6.02 RBC 4.23 Hgb 12.1 Hct 36.1 L MCV 85.3 MCH 28.6 MCHC 33.5 RDW Std Deviation 39.8 RDW Coeff of Von 12.8 Plt Count 287 MPV 9.3 L Immature Gran % (Auto) 0.3 Neut % (Auto) 77.5 Lymph % (Auto) 15.0 Nolan % (Auto) 6.3 Eos % (Auto) 0.2 Baso % (Auto) 0.7 Neut # (Auto) 4.67 Lymph # (Auto) 0.90 L Nolan # (Auto) 0.38 Eos # (Auto) 0.01 Baso # (Auto) 0.04 Immature Gran # (Auto) 0.02 ESR 27 Sodium 140 Potassium 3.8 Chloride 105 Carbon Dioxide 30 Anion Gap 5 BUN 19 Creatinine 0.73 Est Cr Clr Drug Dosing 81.7 eGFR 94.68 BUN/Creatinine Ratio 26.0 H Glucose 119 H POC Glucose 82 87 Calcium 8.9 Magnesium 2.0 Total Bilirubin 0.4 AST 12 L ALT 12 Alkaline Phosphatase 70 C-Reactive Protein < 0.50 Total Protein 6.5 Albumin 3.7 Globulin 2.8 Albumin/Globulin Ratio 1.3 Procalcitonin 0.03 Urine Color Urine Appearance Urine pH Ur Specific [place] Urine Protein Urine Glucose (UA) Urine Ketones Urine Blood Urine Nitrite Urine Bilirubin Urine Urobilinogen Ur Leukocyte Esterase Urine Comment 05/10/25 05/10/25 05/10/25 20:07 13:42 10:00 WBC RBC Hgb Hct MCV MCH MCHC RDW Std Deviation RDW Coeff of Von Plt Count MPV Immature Gran % (Auto) Neut % (Auto) Lymph % (Auto) Nolan % (Auto) Eos % (Auto) Baso % (Auto) Neut # (Auto) Lymph # (Auto) Nolan # (Auto) Eos # (Auto) Baso # (Auto) Immature Gran # (Auto) ESR Sodium Potassium Chloride Carbon Dioxide Anion Gap BUN Creatinine Est Cr Clr Drug Dosing eGFR BUN/Creatinine Ratio Glucose POC Glucose 161 H Calcium Magnesium Total Bilirubin AST ALT Alkaline Phosphatase C-Reactive Protein < 0.50 Total Protein Albumin Globulin Albumin/Globulin Ratio Procalcitonin Urine Color Yellow Urine Appearance Clear Urine pH 5.5 Ur Specific [place] 1.022 Urine Protein Negative Urine Glucose (UA) Negative Urine Ketones Trace H Urine Blood Negative Urine Nitrite Negative Urine Bilirubin Negative Urine Urobilinogen Negative Ur Leukocyte Esterase Negative Urine Comment PG Care Time/CCT Total # of Minutes Spent Total Time Spent with Patient: Total time spent is greater than 50% in coordination of care (as documented) at patient's floor/unit and/or counseling patient: Coding Level of Care Code 52332 SUB INP/OBS CARE 2/35MIN Diagnoses Migraine headache G43.909 Diabetes E11.9 Fibromyalgia M79.7 Headache R51 GERD (gastroesophageal reflux disease) K21.9 Esophagitis presence: esophagitis presence not specified Anxiety F41.9 SIRS (systemic inflammatory response syndrome) R65.10 (5) GERD (gastroesophageal reflux disease) Esophagitis presence: esophagitis presence not specified Qualified Code(s): K21.9 - Gastro-esophageal reflux disease without esophagitis
[2025-05-11] MEDS: cefTRIAXone SODIUM 2,000 MG/50 ML BAG IV SCH (15:36)
[2025-05-12 07:38] LABS: Hematocrit (blood only) 36.4 % (37.0-47.0); Hemoglobin 12.0 g/dL (12.0-16.0); Immature Granulocytes # (auto) 0.02 K/uL (0.01-0.20); Immature Granulocytes % (auto) 0.4 %; Mean Corpuscular Hemoglobin 28.6 pg (25.0-34.0); Mean Corpuscular Volume 86.7 fL (80.0-100.0); Platelet Count 290 K/uL (130-400); RDW Standard Deviation 41.6 fL (36.4-46.3); Red Blood Count 4.20 M/uL (4.20-5.40); White Blood Count 4.80 K/ul (4.8-10.8)
[2025-05-12 08:01] LABS: Alanine Aminotransferase 11 U/L (7-52); Albumin Globulin Ratio 1.3 (0.9-2); Albumin Level 3.7 gm/dl (3.4-5.0); Alkaline Phosphatase 65 U/L (34-104); Anion Gap 8 (3-11); Bilirubin,Total 0.4 mg/dl (0.2-1.0); Blood Urea Nitrogen 23 mg/dl (6-23); Calcium 8.9 mg/dl (8.6-10.3); Carbon Dioxide 28 mmol/L (21-32); Chloride 106 mmol/L (98-107); Creatinine Clr Calc Pharmacy 67.8 ml/min; Globulin 2.8 gm/dl (2.5-4.0); Glucose 88 mg/dl (70-99(Fasting)); Magnesium 2.0 mg/dl (1.7-2.4); Potassium 3.9 mmol/L (3.5-5.1); Sodium 142 mmol/L (136-145); Total Protein 6.5 gm/dl (6.0-8.3)
--- NOTE | 2025-05-12 10:08 | Electrocardiogram Report ---
Test Reason : Blood Pressure : */* mmHG Vent. Rate : 67 BPM Atrial Rate : 67 BPM P-R Int : 120 ms QRS Dur : 72 ms QT Int : 394 ms P-R-T Axes : 40 41 35 degrees QTcB Int : 416 ms Normal sinus rhythm Cannot rule out Anterior infarct , age undetermined Abnormal ECG When compared with ECG of 18-Mar-2025 19:26, Premature supraventricular complexes are no longer Present Confirmed by Santos Greenberg ([id number]) on 05/12/2025 10:07:55 AM Referred By: Confirmed By: Santos Greenberg
--- NOTE | 2025-05-12 15:09 | Magnetic Resonance Report ---
MR brain wo con HISTORY: 60 years-old Female Positive Lyme/CRUZ Concern for meningitis acute headache COMPARISON: Head CT 05/10/2025, MRI brain 12/12/2023 TECHNIQUE: Multiplanar multisequence MRI of the brain was obtained without IV contrast FINDINGS: No restricted diffusion to suggest an acute or subacute infarct. Midline structures are unremarkable. No acute intracranial hemorrhage, midline shift, abnormal extra-axial collection, hydrocephalus or i ntra-axial mass. Normal volume of the brain parenchyma. Mild scattered T2/FLAIR hyperintense foci thr oughout the white matter are unchanged from prior, likely related to early chronic microvascular isch emic disease. Cerebral venous sinuses and major arterial flow voids appear patent. Skull, orbits and soft tissues a re unremarkable. Mastoid air cells and paranasal sinuses appear clear. IMPRESSION: No acute intracranial abnormality. No acute infarct. ACT 112: Negative or not required by law. The above report was generated using voice recognition software. It may contain grammatical, syntax o r spelling errors. Electronically signed by: Osvaldo Gonsales M.D. 05/12/2025 3:07 PM
--- NOTE | 2025-05-12 18:03 | Hospitalist Progress Note ---
Date of Service May 12, 2025 Assessment & Plan (1) Migraine headache: (2) Diabetes: (3) Fibromyalgia: (4) Headache: (5) GERD (gastroesophageal reflux disease): (6) Anxiety: (7) SIRS (systemic inflammatory response syndrome): Plan #SIRS #Nausea/vomiting/ myalgias #Positive Lyme serology - Progressive generalized signs of illness. No clear source at this point. This appears to be a new seroconversion for Lyme disease as she was checked after the tick bite couple months ago. -Given intolerance to doxycycline and other alternatives Rocephin was initiated. -CRP added, serial inflammatory markers to monitor for trend -Observation, telemetry -Continue Rocephin -Antiemetics -responded well to volume expansion will continue normal saline at 125 cc/h through the night- -Anaplasma titer sent, if this is positive doxycycline would be the only meaningful antibiotics. Her previous intolerance was vision changes. Will reassess as it was not a true anaphylactic type allergy depending on the Anaplasma result -ESR with AM labs - Labs stable, clinically improving, near baseline. See discussion follow-up below for Rocephin. If she does not tolerate the Rocephin after this dose we may need to consult infectious disease for viable alternatives #Vision changes/hallucination #Positive Kernig's - Not classic hallucinations, better described as lights in her right peripheral vision which she interpreted as cats and other things. Absent when she would open her eyes, and attributed to the antibiotics per patient - Resolved at this time, suspect dexamethasone over Rocephin - No recurrence of symptoms since yesterday. Did not recur with Rocephin. -Atypical headache as noted below. Previous CT was unremarkable. MRI pending -Nonspecific, stable vital signs but does give some concern for an underlying meningeal inflammation. #Headaches - Consistent with prior headaches. No signs of nuchal rigidity or meningitis, improving after IV Tylenol and volume expansion - head CT unremarkable - Somewhat different than her typical headaches, cannot rule out meningeal inflammation or leptomeningeal inflammation - MRI without as she has a gadolinium allergy - Monitor vital signs, serial inflammatory markers. Consider LP if symptoms are not improving #Hypothyroid -send free T4, subcilnical at this time #Type 2 diabetes -Diabetic diet, sliding scale initially, A1c #History of fibromyalgia -continue baclofen, duloxetine #History of peripheral edema -Continue Lasix #FEN NS as above, diabetic diet #CODE STATUS -Full Code per her wishes. Admission and Anticipated Discharge Date Admission Date: May 10, 2025 Subjective Reporting a headache this morning. She does have a history of migraine but this seems to be different. She states that over the last 12 hours it seems to have worsened, moved posteriorly. Now seems to be into her neck. No fevers chills night sweats. Eating and drinking okay but not as well as normal. No new or different symptoms aside from the headache as noted above. No generalized signs of illness or feeling like she has the flu. Physical Exam Physical Exam: GENERAL NAD. Openly conversive HEAD - NC/AT. EYES - PERRL with EOMI bilaterally. Sclera anicteric. MOUTH/OROPHARYNX - MMM NECK - Neck with FROM. No nuchal rigidity. No Adenopathy LUNGS - CTAB CARDIAC - RRR, No M/R/G ABDOMEN - Normal BS No tenderness,no palpable masses, hepatosplenomegaly, or fluid level/wave. EXTREMITIES - No clubbing or peripheral cyanosis. NEUROLOGIC - Cranial nerves II through XII grossly intact. No focal deficits SKIN - Without rashes. No meningeal or petechial rash. Results & Data Results & Data Vital Signs (Past 12 Hours) Vital Signs Temp Pulse Resp BP Pulse Ox O2 Del Method 05/12/25 11:00 36.5 C 64 20 102/48 L 97 Room Air 05/12/25 07:53 36.4 C L 64 18 100/52 L 97 Room Air 05/12/25 07:09 36.6 C 61 16 110/69 97 Room Air Laboratory Results 05/10/25 10:00 Aerobic Blood Culture - Preliminary Blood No growth in Aerobic bottle after 48 hours. Anaerobic Blood Culture - Preliminary No growth in Anaerobic bottle after 48 hours. 05/10/25 10:17 Aerobic Blood Culture - Preliminary Blood No growth in Aerobic bottle after 48 hours. Anaerobic Blood Culture - Preliminary No growth in Anaerobic bottle after 48 hours. 05/12/25 05/12/25 05/12/25 16:31 11:40 07:45 WBC RBC Hgb Hct MCV MCH MCHC RDW Std Deviation RDW Coeff of Von Plt Count MPV Immature Gran % (Auto) Neut % (Auto) Lymph % (Auto) Morrill % (Auto) Eos % (Auto) Baso % (Auto) Neut # (Auto) Lymph # (Auto) Morrill # (Auto) Eos # (Auto) Baso # (Auto) Immature Gran # (Auto) Sodium Potassium Chloride Carbon Dioxide Anion Gap BUN Creatinine Est Cr Clr Drug Dosing eGFR BUN/Creatinine Ratio Glucose POC Glucose 109 H 103 H 87 Calcium Magnesium Total Bilirubin AST ALT Alkaline Phosphatase C-Reactive Protein Total Protein Albumin Globulin Albumin/Globulin Ratio Procalcitonin 05/12/25 05/11/25 07:13 19:58 WBC 4.80 RBC 4.20 Hgb 12.0 Hct 36.4 L MCV 86.7 MCH 28.6 MCHC 33.0 RDW Std Deviation 41.6 RDW Coeff of Von 13.3 Plt Count 290 MPV 9.2 L Immature Gran % (Auto) 0.4 Neut % (Auto) 57.1 Lymph % (Auto) 32.9 Morrill % (Auto) 5.6 Eos % (Auto) 1.9 Baso % (Auto) 2.1 Neut # (Auto) 2.74 Lymph # (Auto) 1.58 Morrill # (Auto) 0.27 Eos # (Auto) 0.09 Baso # (Auto) 0.10 Immature Gran # (Auto) 0.02 Sodium 142 Potassium 3.9 Chloride 106 Carbon Dioxide 28 Anion Gap 8 BUN 23 Creatinine 0.88 Est Cr Clr Drug Dosing 67.8 eGFR 75.66 BUN/Creatinine Ratio 26.1 H Glucose 88 POC Glucose 96 Calcium 8.9 Magnesium 2.0 Total Bilirubin 0.4 AST 11 L ALT 11 Alkaline Phosphatase 65 C-Reactive Protein < 0.50 Total Protein 6.5 Albumin 3.7 Globulin 2.8 Albumin/Globulin Ratio 1.3 Procalcitonin 0.02 Diagnostic Findings Brain MRI 05/12/25 12:43 MR brain wo con HISTORY: 60 years-old Female Positive Lyme/CRUZ Concern for meningitis acute headache COMPARISON: Head CT 05/10/2025, MRI brain 12/12/2023 TECHNIQUE: Multiplanar multisequence MRI of the brain was obtained without IV contrast FINDINGS: No restricted diffusion to suggest an acute or subacute infarct. Midline structures are unremarkable. No acute intracranial hemorrhage, midline shift, abnormal extra-axial collection, hydrocephalus or intra-axial mass. Normal volume of the brain parenchyma. Mild scattered T2/FLAIR hyperintense foci throughout the white matter are unchanged from prior, likely related to early chronic microvascular ischemic disease. Cerebral venous sinuses and major arterial flow voids appear patent. Skull, orbits and soft tissues are unremarkable. Mastoid air cells and paranasal sinuses appear clear. IMPRESSION: No acute intracranial abnormality. No acute infarct. ACT 112: Negative or not required by law. The above report was generated using voice recognition software. It may contain grammatical, syntax or spelling errors. Electronically signed by: Osvaldo Gonsales M.D. 05/12/2025 3:07 PM PG Care Time/CCT Total # of Minutes Spent Total Time Spent with Patient: Total time spent is greater than 50% in coordination of care (as documented) at patient's floor/unit and/or counseling patient: Coding Level of Care Code 82151 SUB INP/OBS CARE 2/35MIN Diagnoses Migraine headache G43.909 Diabetes E11.9 Fibromyalgia M79.7 Headache R51 GERD (gastroesophageal reflux disease) K21.9 Esophagitis presence: esophagitis presence not specified Anxiety F41.9 SIRS (systemic inflammatory response syndrome) R65.10 (5) GERD (gastroesophageal reflux disease) Esophagitis presence: esophagitis presence not specified Qualified Code(s): K21.9 - Gastro-esophageal reflux disease without esophagitis
[2025-05-13 06:21] LABS: Hematocrit (blood only) 35.7 % (37.0-47.0); Hemoglobin 11.9 g/dL (12.0-16.0); Immature Granulocytes # (auto) 0.01 K/uL (0.01-0.20); Immature Granulocytes % (auto) 0.2 %; Mean Corpuscular Hemoglobin 28.9 pg (25.0-34.0); Mean Corpuscular Volume 86.7 fL (80.0-100.0); Platelet Count 276 K/uL (130-400); RDW Standard Deviation 41.1 fL (36.4-46.3); Red Blood Count 4.12 M/uL (4.20-5.40); White Blood Count 4.20 K/ul (4.8-10.8)
[2025-05-13 06:39] LABS: Alanine Aminotransferase 11 U/L (7-52); Albumin Globulin Ratio 1.4 (0.9-2); Albumin Level 3.8 gm/dl (3.4-5.0); Alkaline Phosphatase 68 U/L (34-104); Anion Gap 7 (3-11); Bilirubin,Total 0.4 mg/dl (0.2-1.0); Blood Urea Nitrogen 23 mg/dl (6-23); Calcium 9.0 mg/dl (8.6-10.3); Carbon Dioxide 28 mmol/L (21-32); Chloride 104 mmol/L (98-107); Creatinine Clr Calc Pharmacy 74.5 ml/min; Globulin 2.8 gm/dl (2.5-4.0); Glucose 88 mg/dl (70-99(Fasting)); Magnesium 2.0 mg/dl (1.7-2.4); Potassium 4.0 mmol/L (3.5-5.1); Sodium 139 mmol/L (136-145); Total Protein 6.6 gm/dl (6.0-8.3)
--- NOTE | 2025-05-13 12:29 | Hospitalist Progress Note ---
Date of Service May 13, 2025 Assessment & Plan (1) Migraine headache: (2) Diabetes: (3) Fibromyalgia: (4) Headache: (5) GERD (gastroesophageal reflux disease): (6) Anxiety: (7) SIRS (systemic inflammatory response syndrome): Plan #SIRS #Nausea/vomiting/ myalgias #Positive Lyme serology - Progressive generalized signs of illness. No clear source at this point. This appears to be a new seroconversion for Lyme disease as she was checked after the tick bite couple months ago. -Given intolerance to doxycycline and other alternatives Rocephin was initiated. -CRP added, serial inflammatory markers to monitor for trend -Observation, telemetry -Continue Rocephin -Antiemetics -responded well to volume expansion will continue normal saline at 125 cc/h through the night- -Anaplasma titer sent, if this is positive doxycycline would be the only meaningful antibiotics. Her previous intolerance was vision changes. Will reassess as it was not a true anaphylactic type allergy depending on the Anaplasma result -ESR with AM labs WNL - progressive headache, ID consult pending, supportive cares, otherwise clinically stable, likely LP and tick borne studies, she would require an atypical regimen if anaplasma/Lyme, cefuroxime has good [employer] concentration. #Vision changes/hallucination #Positive Kernig's - Not classic hallucinations, better described as lights in her right peripheral vision which she interpreted as cats and other things. Absent when she would open her eyes, and attributed to the antibiotics per patient - Resolved at this time, suspect dexamethasone over Rocephin - No recurrence of symptoms since yesterday. Did not recur with Rocephin. - Atypical headache as noted below. Previous CT was unremarkable. MRI without contrast unremarkable, ould be rebound from the high dose decadron but she only received one dose and had visual disturbances/hallucinations. - Likely LP later today, low dose morphine as abortive therapy. - Nonspecific, stable vital signs but does give some concern for an underlying meningeal inflammation. #Headaches - Consistent with prior headaches. No signs of nuchal rigidity or meningitis, improving after IV Tylenol and volume expansion - head CT unremarkable - Somewhat different than her typical headaches, cannot rule out meningeal inflammation or leptomeningeal inflammation - MRI without as she has a gadolinium allergy - Monitor vital signs, serial inflammatory markers. Consider LP if symptoms are not improving #Hypothyroid -send free T4, subclinical at this time #Type 2 diabetes -Diabetic diet, sliding scale initially, A1c #History of fibromyalgia -continue baclofen, duloxetine #History of peripheral edema -Continue Lasix #FEN NS as above, diabetic diet #CODE STATUS -Full Code per her wishes. Admission and Anticipated Discharge Date Admission Date: May 10, 2025 Subjective No fevers or chills. Patient reports that headache is worse this morning. Mo ves somewhat but mostly posterior neck. Notes positive photophobia. This is a very different headache than what she is used to. Not responding to Tylenol. Discussed low-dose morphine. This is a short-term abortive agent. Otherwise no new events or concerns. She is status at 1 point she did have some tingling in her toes but feels no weakness or other generalized signs of illness. ID consul t pending Physical Exam Physical Exam: GENERAL NAD. Openly conversive HEAD - NC/AT. EYES - PERRL with EOMI bilaterally. Sclera anicteric. MOUTH/OROPHARYNX - MMM NECK - Neck with FROM. No nuchal rigidity. No Adenopathy LUNGS - CTAB CARDIAC - RRR, No M/R/G ABDOMEN - Normal BS No tenderness,no palpable masses, hepatosplenomegaly, or fluid level/wave. EXTREMITIES - No clubbing or peripheral cyanosis. NEUROLOGIC - Cranial nerves II through XII grossly intact. No focal deficits SKIN - Without rashes. No meningeal or petechial rash. Results & Data Results & Data Vital Signs (Past 12 Hours) Vital Signs Temp Pulse Resp BP Pulse Ox O2 Del Method 05/13/25 07:11 36.4 C L 55 L 17 114/70 97 Room Air Laboratory Results 05/10/25 10:00 Aerobic Blood Culture - Preliminary Blood No growth in Aerobic bottle after 48 hours. Anaerobic Blood Culture - Preliminary No growth in Anaerobic bottle after 48 hours. 05/10/25 10:17 Aerobic Blood Culture - Preliminary Blood No growth in Aerobic bottle after 48 hours. Anaerobic Blood Culture - Preliminary No growth in Anaerobic bottle after 48 hours. 05/13/25 05/13/25 05/13/25 12:03 08:03 05:54 WBC 4.20 L RBC 4.12 L Hgb 11.9 L Hct 35.7 L MCV 86.7 MCH 28.9 MCHC 33.3 RDW Std Deviation 41.1 RDW Coeff of Von 13.1 Plt Count 276 MPV 9.1 L Immature Gran % (Auto) 0.2 Neut % (Auto) 58.6 Lymph % (Auto) 28.6 Braxton % (Auto) 8.1 Eos % (Auto) 2.6 Baso % (Auto) 1.9 Neut # (Auto) 2.46 Lymph # (Auto) 1.20 Braxton # (Auto) 0.34 Eos # (Auto) 0.11 Baso # (Auto) 0.08 Immature Gran # (Auto) 0.01 ESR 24 Sodium 139 Potassium 4.0 Chloride 104 Carbon Dioxide 28 Anion Gap 7 BUN 23 Creatinine 0.80 Est Cr Clr Drug Dosing 74.5 eGFR 84.82 BUN/Creatinine Ratio 28.8 H Glucose 88 POC Glucose 105 H 88 Calcium 9.0 Magnesium 2.0 Total Bilirubin 0.4 AST 13 ALT 11 Alkaline Phosphatase 68 C-Reactive Protein < 0.50 Total Protein 6.6 Albumin 3.8 Globulin 2.8 Albumin/Globulin Ratio 1.4 Procalcitonin 0.02 05/12/25 05/12/25 20:32 16:31 WBC RBC Hgb Hct MCV MCH MCHC RDW Std Deviation RDW Coeff of Von Plt Count MPV Immature Gran % (Auto) Neut % (Auto) Lymph % (Auto) Braxton % (Auto) Eos % (Auto) Baso % (Auto) Neut # (Auto) Lymph # (Auto) Braxton # (Auto) Eos # (Auto) Baso # (Auto) Immature Gran # (Auto) ESR Sodium Potassium Chloride Carbon Dioxide Anion Gap BUN Creatinine Est Cr Clr Drug Dosing eGFR BUN/Creatinine Ratio Glucose POC Glucose 107 H 109 H Calcium Magnesium Total Bilirubin AST ALT Alkaline Phosphatase C-Reactive Protein Total Protein Albumin Globulin Albumin/Globulin Ratio Procalcitonin Diagnostic Findings Brain MRI 05/12/25 12:43 MR brain wo con HISTORY: 60 years-old Female Positive Lyme/CRUZ Concern for meningitis acute headache COMPARISON: Head CT 05/10/2025, MRI brain 12/12/2023 TECHNIQUE: Multiplanar multisequence MRI of the brain was obtained without IV contrast FINDINGS: No restricted diffusion to suggest an acute or subacute infarct. Midline structures are unremarkable. No acute intracranial hemorrhage, midline shift, abnormal extra-axial collection, hydrocephalus or intra-axial mass. Normal volume of the brain parenchyma. Mild scattered T2/FLAIR hyperintense foci throughout the white matter are unchanged from prior, likely related to early chronic microvascular ischemic disease. Cerebral venous sinuses and major arterial flow voids appear patent. Skull, orbits and soft tissues are unremarkable. Mastoid air cells and paranasal sinuses appear clear. IMPRESSION: No acute intracranial abnormality. No acute infarct. ACT 112: Negative or not required by law. The above report was generated using voice recognition software. It may contain grammatical, syntax or spelling errors. Electronically signed by: Osvaldo Gonsales M.D. 05/12/2025 3:07 PM PG Care Time/CCT Total # of Minutes Spent Total Time Spent with Patient: Total time spent is greater than 50% in coordination of care (as documented) at patient's floor/unit and/or counseling patient: Coding Level of Care Code 76168 SUB INP/OBS CARE 2/35MIN Diagnoses Migraine headache G43.909 Diabetes E11.9 Fibromyalgia M79.7 Headache R51 GERD (gastroesophageal reflux disease) K21.9 Esophagitis presence: esophagitis presence not specified Anxiety F41.9 SIRS (systemic inflammatory response syndrome) R65.10 (5) GERD (gastroesophageal reflux disease) Esophagitis presence: esophagitis presence not specified Qualified Code(s): K21.9 - Gastro-esophageal reflux disease without esophagitis
[2025-05-13] MEDS: HYDROmorphone INJ 0.5 MG/0.5 ML SYR IV STA (13:07)
[2025-05-13] MEDS: ONDANSETRON INJ 2 MG/ML 2 ML VIAL IV PRN (13:41)
[2025-05-14 06:08] LABS: Hematocrit (blood only) 37.2 % (37.0-47.0); Hemoglobin 12.2 g/dL (12.0-16.0); Immature Granulocytes # (auto) 0.02 K/uL (0.01-0.20); Immature Granulocytes % (auto) 0.4 %; Mean Corpuscular Hemoglobin 28.5 pg (25.0-34.0); Mean Corpuscular Volume 86.9 fL (80.0-100.0); Platelet Count 285 K/uL (130-400); RDW Standard Deviation 41.6 fL (36.4-46.3); Red Blood Count 4.28 M/uL (4.20-5.40); White Blood Count 5.07 K/ul (4.8-10.8)
[2025-05-14 06:46] LABS: Alanine Aminotransferase 17 U/L (7-52); Albumin Globulin Ratio 1.3 (0.9-2); Albumin Level 3.8 gm/dl (3.4-5.0); Alkaline Phosphatase 67 U/L (34-104); Anion Gap 6 (3-11); Bilirubin,Total 0.4 mg/dl (0.2-1.0); Blood Urea Nitrogen 21 mg/dl (6-23); Calcium 9.0 mg/dl (8.6-10.3); Carbon Dioxide 30 mmol/L (21-32); Chloride 103 mmol/L (98-107); Creatinine Clr Calc Pharmacy 74.5 ml/min; Globulin 2.9 gm/dl (2.5-4.0); Glucose 96 mg/dl (70-99(Fasting)); Magnesium 2.2 mg/dl (1.7-2.4); Sodium 139 mmol/L (136-145); Total Protein 6.7 gm/dl (6.0-8.3)
[2025-05-14 07:27] LABS: Potassium 5.2 mmol/L (3.5-5.1)
[2025-05-14] MEDS: KETOROLAC TROMETHAMINE 15 MG/ML VIAL IV ONE (10:20)
[2025-05-14] MEDS: diphenhydrAMINE 50 MG/ML VIAL IV STA (13:48)
--- NOTE | 2025-05-14 14:06 | Hospitalist Progress Note ---
Date of Service May 14, 2025 Assessment & Plan (1) Migraine headache: (2) Diabetes: (3) Fibromyalgia: (4) Headache: (5) GERD (gastroesophageal reflux disease): (6) Anxiety: (7) SIRS (systemic inflammatory response syndrome): Plan #SIRS #Nausea/vomiting/ myalgias #Positive Lyme serology - Progressive generalized signs of illness. No clear source at this point. This appears to be a new seroconversion for Lyme disease as she was checked after the tick bite couple months ago. -Given intolerance to doxycycline and other alternatives Rocephin was initiated. -CRP added, serial inflammatory markers to monitor for trend -Observation, telemetry -Continue Rocephin -Antiemetics -responded well to volume expansion will continue normal saline at 125 cc/h through the night- -Anaplasma titer sent, if this is positive doxycycline would be the only meaningful antibiotics. Her previous intolerance was vision changes. Will reassess as it was not a true anaphylactic type allergy depending on the Anaplasma result -ESR with AM labs WNL - progressive headache, ID consult pending, supportive cares, otherwise clinically stable, likely LP and tick borne studies, she would require an atypical regimen if anaplasma/Lyme, cefuroxime has good [employer]STOCK [employer]CTION[employer] concentration. - Case was reviewed with infectious disease online. No indication for LP at this time as Rocephin is adequate for short-term coverage. In consideration of transfer to oral antibiotics such as cefuroxime and LP to rule out LIVESTOCK AUCTION[employer] involvement would be reasonable. Can continue with Rocephin and supportive cares for now. direct telemedicine ID consult morning to discuss LP versus possibly initiation of doxycycline despite prior reactions. For now continue supportive care as above - Consensus was curbside with ID over the weekend if that symptoms are related to Lyme serology conversion. She does not go the route for oral antibiotics she will need Rocephin likely for 3-4 weeks. #Vision changes/hallucination #Positive Kernig's - Not classic hallucinations, better described as lights in her right peripheral vision which she interpreted as cats and other things. Absent when she would open her eyes, and attributed to the antibiotics per patient - Resolved at this time, suspect dexamethasone over Rocephin - No recurrence of symptoms since yesterday. Did not recur with Rocephin. - Atypical headache as noted below. Previous CT was unremarkable. MRI without contrast unremarkable, ould be rebound from the high dose decadron but she only received one dose and had visual disturbances/hallucinations. - Likely LP later today, low dose morphine as abortive therapy. - Nonspecific, stable vital signs but does give some concern for an underlying meningeal inflammation. - See discussion above waxes and wanes but no sustained improvement #Headaches - Consistent with prior headaches. No signs of nuchal rigidity or meningitis, improving after IV Tylenol and volume expansion - head CT unremarkable - Somewhat different than her typical headaches, cannot rule out meningeal inflammation or leptomeningeal inflammation - MRI without as she has a gadolinium allergy - Monitor vital signs, serial inflammatory markers. Consider LP if symptoms are not improving - Stable, responding to Toradol, will continue. History of basilar migraines treated with Lasix, Benadryl, droperidol, but she has not needed these treatments for about 20 years #Hypothyroid -send free T4, subclinical at this time #Type 2 diabetes -Diabetic diet, sliding scale initially, A1c #History of fibromyalgia -continue baclofen, duloxetine #History of peripheral edema -Continue Lasix #FEN NS as above, diabetic diet #CODE STATUS -Full Code per her wishes. Admission and Anticipated Discharge Date Admission Date: May 14, 2025 Subjective Doing okay today. The headache remains is somewhat mobile, waxes and wanes. Toradol helped for a while this morning. She has noted no more vision changes. She did find her old paperwork for basilar migraines for which she used to receive droperidol, Benadryl and Lasix. Overall no worsening, close with no significant improvement that is sustained compared to admission. Physical Exam Physical Exam: GENERAL NAD. Openly conversive HEAD - NC/AT. EYES - PERRL with EOMI bilaterally. Sclera anicteric. MOUTH/OROPHARYNX - MMM NECK - Neck with FROM. No nuchal rigidity. No Adenopathy LUNGS - CTAB CARDIAC - RRR, No M/R/G ABDOMEN - Normal BS No tenderness,no palpable masses, hepatosplenomegaly, or fluid level/wave. EXTREMITIES - No clubbing or peripheral cyanosis. NEUROLOGIC - Cranial nerves II through XII grossly intact. No focal deficits SKIN - Without rashes. No meningeal or petechial rash. Results & Data Results & Data Vital Signs (Past 12 Hours) Vital Signs Temp Pulse Resp BP Pulse Ox O2 Del Method 05/14/25 06:57 36.5 C 74 16 121/76 100 Room Air Laboratory Results 05/14/25 05/14/25 05/14/25 11:41 07:45 05:49 WBC 5.07 RBC 4.28 Hgb 12.2 Hct 37.2 MCV 86.9 MCH 28.5 MCHC 32.8 RDW Std Deviation 41.6 RDW Coeff of Von 13.2 Plt Count 285 MPV 9.5 Immature Gran % (Auto) 0.4 Neut % (Auto) 64.0 Lymph % (Auto) 24.3 Norman % (Auto) 7.5 Eos % (Auto) 2.6 Baso % (Auto) 1.2 Neut # (Auto) 3.25 Lymph # (Auto) 1.23 Norman # (Auto) 0.38 Eos # (Auto) 0.13 Baso # (Auto) 0.06 Immature Gran # (Auto) 0.02 Sodium 139 Potassium 5.2 H D Chloride 103 Carbon Dioxide 30 Anion Gap 6 BUN 21 Creatinine 0.80 Est Cr Clr Drug Dosing 74.5 eGFR 84.82 BUN/Creatinine Ratio 26.3 H Glucose 96 POC Glucose 85 99 Calcium 9.0 Magnesium 2.2 Total Bilirubin 0.4 AST 21 ALT 17 Alkaline Phosphatase 67 C-Reactive Protein < 0.50 Total Protein 6.7 Albumin 3.8 Globulin 2.9 Albumin/Globulin Ratio 1.3 Procalcitonin < 0.02 05/13/25 05/13/25 20:20 16:49 WBC RBC Hgb Hct MCV MCH MCHC RDW Std Deviation RDW Coeff of Von Plt Count MPV Immature Gran % (Auto) Neut % (Auto) Lymph % (Auto) Norman % (Auto) Eos % (Auto) Baso % (Auto) Neut # (Auto) Lymph # (Auto) Norman # (Auto) Eos # (Auto) Baso # (Auto) Immature Gran # (Auto) Sodium Potassium Chloride Carbon Dioxide Anion Gap BUN Creatinine Est Cr Clr Drug Dosing eGFR BUN/Creatinine Ratio Glucose POC Glucose 105 H 109 H Calcium Magnesium Total Bilirubin AST ALT Alkaline Phosphatase C-Reactive Protein Total Protein Albumin Globulin Albumin/Globulin Ratio Procalcitonin PG Care Time/CCT Total # of Minutes Spent Total Time Spent with Patient: Total time spent is greater than 50% in coordination of care (as documented) at patient's floor/unit and/or counseling patient: Coding Level of Care Code 50866 SUB INP/OBS CARE MIN Diagnoses Migraine headache G43.909 Diabetes E11.9 Fibromyalgia M79.7 Headache R51 GERD (gastroesophageal reflux disease) K21.9 Esophagitis presence: esophagitis presence not specified Anxiety F41.9 SIRS (systemic inflammatory response syndrome) R65.10 (5) GERD (gastroesophageal reflux disease) Esophagitis presence: esophagitis presence not specified Qualified Code(s): K21.9 - Gastro-esophageal reflux disease without esophagitis
[2025-05-14] MEDS: MELATONIN 3 MG TAB PO PRN (20:51)
[2025-05-15 06:47] LABS: Hematocrit (blood only) 38.3 % (37.0-47.0); Hemoglobin 12.3 g/dL (12.0-16.0); Immature Granulocytes # (auto) 0.02 K/uL (0.01-0.20); Immature Granulocytes % (auto) 0.4 %; Mean Corpuscular Hemoglobin 28.1 pg (25.0-34.0); Mean Corpuscular Volume 87.6 fL (80.0-100.0); Platelet Count 284 K/uL (130-400); RDW Standard Deviation 42.3 fL (36.4-46.3); Red Blood Count 4.37 M/uL (4.20-5.40); White Blood Count 5.51 K/ul (4.8-10.8)
--- NOTE | 2025-05-15 08:55 | Infectious Disease Consult ---
Date of Consultation May 15, 2025 Assessment & Plan (1) Headache: (2) Lyme disease: Plan Problems: #Headache #Lyme IgG, IgM positive Micro: 05/15 CSF WBC 0, RBC 1, protein 45.9, glucose 62 Meningitis/encephalitis panel: neg Lyme IgG, IgM: pending Lyme PCR: pending CrAg: pending West Nile PCR: pending EBV PCR: pending VDRL: pending 05/15 Lyme WB: pending 05/10 Anaplasma PCR: neg 05/10 Lyme Tier 2 IgG positive, IgM positive 05/10 Lyme screen equivocal Abx: Ceftriaxone 05/10 - present 60 yo F with history of T2DM, fibromyalgia, recurrent migraines, TBI about a year ago, multiple allergies, GERD who presented on 05/10 with vomiting, headache, and back pain. She reported that starting on 05/06 evening she developed a headache, which felt similar to prior headaches. Reports R lower back pain radiating down the R leg. Had a tick bite in March. Noted subjective fevers x 24 hours. On presentation, pt was afebrile, BP 93/66, improved with IVF. Labs showed unremarkable CBC and CMP. RVP negative. CT head with no acute findings. CTAP without contrast showed no acute process. Initial Lyme screen equivocal, and tier 2 indirect chemiluminescence assay positive for Lyme IgG and IgM. Last had a negative Lyme screen 03/18/25. After volume resuscitation, she was still feeling weak, dizzy, having difficult with ambulation. She was started on ceftriaxone and admitted. Anaplasma PCR came back negative. Pt continued with headache, reporting 05/12 that her headache worsened and moved posteriorly, and seemed to be into her neck. On my evaluation, pt reports that this feels different from her typical migraines, as she is not having vomiting and is not passing out. She notes she has photophobia and neck pain which are different from usual. [place], and found a tick on her back in March 2025. She does not know how long it was on her. She thought she removed it, but she saw her doctor who noted it was incompletely removed and had to remove the rest of it. She had testing for Lyme at that time which was negative. She then was not feeling well in April, and had repeat Lyme test which was again negative. Pt notes that she took a course of doxycycline for Lyme disease a few years ago (summer 2019?), and had difficulty tolerating it as it caused some visual changes. She was able to finish a week of the doxycycline at the advice of her PCP. On chart review, she presented to the ED in 06/2020 with chest pain, L shoulder pain, headache. She had a Lyme screen done at that time which was positive, and was prescribed 3 weeks of doxycycline--unclear if she took this? The Lyme western blot at that time came back positive with 5 IgG bands and 2 IgM bands. Discussion: I recommended an LP to evaluate for Lyme meningitis, which was performed 05/15 and returned with CSF WBC 0, normal protein. CSF meningitis/encephalitis PCR panel negative. Normal CSF profile is not suggestive of Lyme meningitis--could plausibly have been affected by having received 5 days of ceftriaxone, although may still expect to see some abnormality? Recommendations: - Can continue ceftriaxone 2 g IV q24h for now - Follow-up Lyme western blot (turnaround time per [facility] is 5-10 days) and remaining CSF studies - Although Lyme meningitis seems less likely, may be reasonable to complete a total 14 day course of treatment for ?Lyme meningitis--if pt able to tolerate doxycycline, could transition to doxycycline 100 mg PO BID through 05/23/25 Will continue to follow. Discussed with Dr. Gonzalez. Consultation Information Consultation was provided via telemedicine using two-way real-time interactive telecommunication between the patient and the telemedicine provider. For the duration of the visit, the provider was performing the assessment from a different facility than the patient. This includesuse of bluetooth stethoscope forauscultationperformed by the telepresenter that the telemedicine provider can hear if described in the physical exam. Pharmaceutical Worker contact information: Please call [facility] . (Phone Number For Physician Use Only) After establishing a telemedicine visit, patient was: Patient was verified with two unique identifiers, Patient/authorized rep acknowledged consent and understanding and Gave permission to continue telehealth session Time Spent with Patient: Initial => 55 min History of Present Illness Reason for Consultation: Headache, positive Lyme serology Attending Physician: Doreen Gonzalez MD History of Present Illness 60 yo F with history of T2DM, fibromyalgia, recurrent migraines, TBI about a year ago, multiple allergies, GERD who presented on 05/10 with vomiting, headache, and back pain. She reported that starting on 05/06 evening she developed a headache, which felt similar to prior headaches. Reports R lower back pain radiating down the R leg. Had a tick bite a few months ago. Noted subjective fevers x 24 hours. On presentation, pt was afebrile, BP 93/66, improved with IVF. Labs showed unremarkable CBC and CMP. RVP negative. CT head with no acute findings. CTAP without contrast showed no acute process. Initial Lyme screen equivocal, and tier 2 indirect chemiluminescence assay positive for Lyme IgG and IgM. Last had a negative Lyme screen 03/18/25. After volume resuscitation, she was still feeling weak, dizzy, having difficult with ambulation. She was started on ceftriaxone and admitted. Anaplasma PCR came back negative. Pt continued with headache, reporting 05/12 that her headache worsened and moved posteriorly, and seemed to be into her neck. On my evaluation, pt reports that this feels different from her typical migraines, as she is not having vomiting and is not passing out. She notes she has photophobia and neck pain which are different from usual. [place], and found a tick on her back in March 2025. She does not know how long it was on her. She thought she removed it, but she saw her doctor who noted it was incompletely removed and had to remove the rest of it. She had testing for Lyme at that time which was negative. She then was not feeling well in April, and had repeat Lyme test which was again negative. Allergies Allergy/AdvReac Type Severity Reaction Status Date / Time Gadolinium-Containing Allergy Severe SEVERE Verified 10/16/21 00:48 Contrast Medi PERIORBITAL EDEMA Iodinated Contrast Media Allergy Severe "SWELLING: Verified 10/16/21 00:48 FACE, TONGUE, THROAT" Pork/Porcine Containing Allergy Severe THROAT Verified 10/16/21 00:48 Products SWELLS amoxicillin Allergy Intermediate Hives Verified 10/16/21 00:48 black pepper Allergy Intermediate VOMITING Verified 10/16/21 00:48 buprenorphine Allergy Intermediate Hives Verified 10/16/21 00:48 morphine Allergy Intermediate Hives Verified 10/16/21 00:48 nitroglycerin Allergy Intermediate Hives Verified 10/16/21 00:48 Penicillins Allergy Intermediate Hives Verified 10/16/21 00:48 phenytoin Allergy Intermediate RASH Verified 10/16/21 00:48 prochlorperazine Allergy Intermediate RASH Verified 10/16/21 00:48 citalopram Allergy Unknown UNKNOWN Verified 10/16/21 00:48 codeine Allergy Unknown Unknown Verified 10/16/21 00:48 metoclopramide [From Reglan] AdvReac Severe TACHYCARDIA, Verified 10/16/21 00:48 HYPERTENSION sumatriptan AdvReac Severe SEVERE Verified 10/16/21 00:48 VOMITING doxycycline AdvReac Intermediate VISION Verified 10/16/21 00:48 CHANGES meloxicam AdvReac Intermediate MOUTH Verified 10/16/21 00:48 SORES & BLEEDING meperidine AdvReac Intermediate BLURRED Verified 10/16/21 00:48 VISION/SEVERE FEVER sulfamethoxazole AdvReac Intermediate Vomiting Verified 10/16/21 00:48 [From Bactrim] trimethoprim [From Bactrim] AdvReac Intermediate Vomiting Verified 10/16/21 00:48 SUTILAINS Allergy Severe SEVERE Uncoded 10/16/21 00:48 PERIORBITAL EDEMA CLORAX BLEACH Allergy Intermediate RASH, Uncoded 10/16/21 00:48 HEADACHE Salt AdvReac Intermediate Unknown Uncoded 05/11/25 09:29 Home Medications Medication Instructions Recorded Confirmed Type albuterol sulfate 90 mcg/actuation 2 puff inhalation Q4H PRN wheeze 06/26/20 05/10/25 History aerosol inhaler baclofen 20 mg tablet 20 mg PO AMHS 06/26/20 05/10/25 History furosemide 20 mg tablet (Lasix) 20 mg PO DAILY PRN Edema 10/16/21 05/10/25 History multivitamin 1 tab PO DAILY 01/03/23 05/10/25 History duloxetine 30 mg capsule,delayed 30 mg PO QPM 05/10/25 05/10/25 History release pantoprazole 40 mg tablet,delayed 40 mg PO BIDM 05/10/25 05/10/25 History release Patient History Medical History GERD (gastroesophageal reflux disease) Situational stress Anxiety Atypical chest pain Social History Smoking Status: Never smoker Second Hand Exposure: No; Hx Alcohol Use: No Hx Substance Use: No Preferred Language: Greek Communication Ability: Effective Mold Sprayer Required: No Beliefs That Will Affect Care: None marital status: marital status details: but living with spouse Current Living Situation: Family Current Living Situation Comment: noted that pt is but lives w/ spouse (per note from ED) Feels Safe at Home: Yes Assistive Devices: None Review of System A complete ROS was performed and is negative except as mentioned in the HPI. Physical Exam Physical Exam: GEN: in NAD. HEENT: Normocephalic, atraumatic. RESP: No increased work of breathing NEURO: Alert and oriented. Answers all questions appropriately. Speech not slurred. PSYCH: Normal mood, affect appropriate. Results & Data Vital Signs (Past 12 Hours) Vital Signs Temp Pulse Resp BP Pulse Ox O2 Del Method 05/15/25 07:00 36.5 C 71 16 105/66 97 Room Air 05/14/25 23:21 36.5 C 61 16 98/60 L 97 Room Air
--- NOTE | 2025-05-15 11:02 | Hospitalist Progress Note ---
Date of Service May 15, 2025 Assessment & Plan (1) Lyme disease: (2) Migraine headache: (3) Diabetes: Plan This patient is a 60-year-old female with a history of migraine headaches, DM2, fibromyalgia, TBI, allergies, GERD, and possible CVA at the age of 31 who presents with migraine headache, neck pain and stiffness, nausea/vomiting, with suspected acute Lyme disease. #Lyme disease/migraine headache/neck pain/sepsis POA-with positive Lyme IgG and IgM, Western blot pending. Given ongoing different type of migraine headache and neck stiffness, LP obtained on 05/15 which had 0 WBCs, negative Gram stain, and BioFire negative. Protein upper limit of normal and glucose normal. Not consistent with meningitis although Lyme PCR on CSF is pending and she had been on ceftriaxone for 5 days prior to LP. Anaplasmosis PCR negative. No further fever or tachycardia -Give Toradol and Benadryl as needed for migraine - Tylenol as needed for migraine - Continue IV ceftriaxone and plan to convert to doxycycline to finish a 2-week course through 05/23/2025-she is willing to take doxycycline-her previous side effects were blurry vision and peripheral hallucinations as well as GI upset - Appreciate ID consultation - Follow-up Lyme Western blot and remaining CSF studies -Zofran as needed #Hypothyroid-TSH is elevated but free T4 is normal - Follow as an outpatient #Type 2 diabetes-blood sugars have been well-controlled with almost no insulin given -Diabetic diet, continue NovoLog supplemental insulin as needed #History of fibromyalgia -continue baclofen, duloxetine #History of peripheral edema -Continue Lasix #GERD-continue pantoprazole 40 mg twice daily DVT prophylaxis-add SCDs, no anticoagulation given LP today Disposition-continued stay, improving, likely discharge to home tomorrow Admission and Anticipated Discharge Date Admission Date: May 14, 2025 Subjective Patient reports ongoing headache with photophobia but headache severity is down to a 4/10. She is now able to walk around the room which she reports she was unable to previously. She is agreeable to lumbar puncture I discussed her care with infectious disease. Physical Exam Constitutional: WD/WN, vitals as above Eyes: PERRL, conjunctivae normal, anicteric sclerae ENMT: external ear and nose normal, oropharynx normal Neck: Able to touch chin to the chest while in a seated position Respiratory: normal respiratory effort, lungs clear to auscultation Cardiovascular: RRR, no murmur, no edema Gastrointestinal (Abdomen): normal bowel sounds, soft, nontender, no hepatosplenomegaly Neurologic: PERRL, EOMI, accommodation nl, no face palsy, no dysarthria Psychiatric: A+Ox3, euthymic affect Results & Data Results & Data Vital Signs (Past 12 Hours) Vital Signs Temp Pulse Resp BP Pulse Ox O2 Del Method 05/15/25 07:00 36.5 C 71 16 105/66 97 Room Air 05/14/25 23:21 36.5 C 61 16 98/60 L 97 Room Air Laboratory Results CBC, CRP, CSF studies reviewed PG Care Time/CCT Total # of Minutes Spent Total Time Spent with Patient: Total time spent is greater than 50% in coordination of care (as documented) at patient's floor/unit and/or counseling patient: Coding Level of Care Code 33551 SUB INP/OBS CARE 2/35MIN Diagnoses Lyme disease A69.20 Migraine headache G43.909 Diabetes E11.9
[2025-05-15 12:09] LABS: Glucose 96 mg/dl (70-99(Fasting))
[2025-05-15 14:44] LABS: CSF Count Tube # 3; CSF Xanthrochromic No xanthochromia; Red Blood Cell CSF Manual 1 (0); White Blood Cell CSF Manual 0 (0-5)
[2025-05-15 16:02] LABS: Cryptococcus neoformans/ga PCR Not Detected (NotDetected); Escherichia coli K1 PCR Not Detected (NotDetected); Haemophilius influenzae PCR Not Detected (NotDetected); Herpes Simplex Virus 1 PCR Not Detected (NotDetected); Herpes Simplex Virus 2 PCR Not Detected (NotDetected); Human Herpes Virus 6 PCR Not Detected (NotDetected); Human Parechovirus PCR Not Detected (NotDetected); Listeria monocytogenes PCR Not Detected (NotDetected); Neisseria meningitidis PCR Not Detected (NotDetected); Streptococcus agalactiae PCR Not Detected (NotDetected); Streptococcus pneumoniae PCR Not Detected (NotDetected)
--- NOTE | 2025-05-15 16:23 | Fluoroscopy Report ---
FLUOROSCOPICALLY GUIDED LUMBAR PUNCTURE CLINICAL HISTORY: r/o Lyme meningitis COMPARISON STUDY: No previous studies for comparison. Fluoroscopy time: 19 seconds. Number of fluoroscopic images: 2. Ka,r: 21.64 mGy. PROCEDURE: The procedure, risks and benefits were discussed with the patient including the risk of sp inal headache, bleeding and infection. The patient agreed to the procedure and informed written conse nt was obtained. The procedure was performed by Dr. Salguero following a timeout. Skin of the lower back was prepped and draped in sterile fashion and local anesthesia was achieved with 1% lidocaine. U nder intermittent fluoroscopic guidance, a 3 1/2 inch 22-gauge needle was directed through the right L3-L4 interlaminar space. There was immediate return of clear cerebrospinal fluid. 8 cc of CSF was co llected in 4 vials and sent to laboratory for analysis as ordered. The needle was removed. Patient to lerated the procedure well and no immediate complications were evident. IMPRESSION: Successful fluoroscopically guided lumbar puncture with collection of 8 cc of clear cere brospinal fluid which was sent to the laboratory for analysis as ordered. ACT 112: Negative or not required by law. Electronically signed by: Oc Salguero M.D. 05/15/2025 4:21 PM
[2025-05-15] MEDS: diphenhydrAMINE 50 MG/ML VIAL IV STA (16:34)
[2025-05-15] MEDS: KETOROLAC TROMETHAMINE 15 MG/ML VIAL IV ONE (16:35)
[2025-05-15] MEDS: KETOROLAC TROMETHAMINE 15 MG/ML VIAL IV PRN (22:35)
[2025-05-15] MEDS: diphenhydrAMINE 50 MG/ML VIAL IV PRN (22:35)
--- NOTE | 2025-05-16 10:28 | Infectious Disease Progress Nt ---
Date of Service May 16, 2025 Assessment & Plan (1) Headache: (2) Lyme disease: Plan Problems: #Headache #Lyme IgG, IgM positive Micro: 05/15 CSF WBC 0, RBC 1, protein 45.9, glucose 62 Meningitis/encephalitis panel: neg Lyme IgG, IgM: pending Lyme PCR: pending CrAg: pending West Nile PCR: pending EBV PCR: pending VDRL: pending 05/15 Lyme WB: pending 05/10 Anaplasma PCR: neg 05/10 Lyme Tier 2 IgG positive, IgM positive 05/10 Lyme screen equivocal Abx: Ceftriaxone 05/10 - present 60 yo F with history of T2DM, fibromyalgia, recurrent migraines, TBI about a year ago, multiple allergies, GERD who presented on 05/10 with vomiting, headache, and back pain. She reported that starting on 05/06 evening she developed a headache, which felt similar to prior headaches. Reports R lower back pain radiating down the R leg. Had a tick bite in March. Noted subjective fevers x 24 hours. On presentation, pt was afebrile, BP 93/66, improved with IVF. Labs showed unremarkable CBC and CMP. RVP negative. CT head with no acute findings. CTAP without contrast showed no acute process. Initial Lyme screen equivocal, and tier 2 indirect chemiluminescence assay positive for Lyme IgG and IgM. Last had a negative Lyme screen 03/18/25. After volume resuscitation, she was still feeling weak, dizzy, having difficult with ambulation. She was started on ceftriaxone and admitted. Anaplasma PCR came back negative. Pt continued with headache, reporting 05/12 that her headache worsened and moved posteriorly, and seemed to be into her neck. On my evaluation, pt reports that this feels different from her typical migraines, as she is not having vomiting and is not passing out. She notes she has photophobia and neck pain which are different from usual. [place], and found a tick on her back in March 2025. She does not know how long it was on her. She thought she removed it, but she saw her doctor who noted it was incompletely removed and had to remove the rest of it. She had testing for Lyme at that time which was negative. She then was not feeling well in April, and had repeat Lyme test which was again negative. Pt notes that she took a course of doxycycline for Lyme disease a few years ago (summer 2019?), and had difficulty tolerating it as it caused some visual changes. She was able to finish a week of the doxycycline at the advice of her PCP. On chart review, she presented to the ED in 06/2020 with chest pain, L shoulder pain, headache. She had a Lyme screen done at that time which was positive, and was prescribed 3 weeks of doxycycline--unclear if she took this? The Lyme western blot at that time came back positive with 5 IgG bands and 2 IgM bands. Discussion: I recommended an LP to evaluate for Lyme meningitis, which was performed 05/15 and returned with CSF WBC 0, normal protein. CSF meningitis/encephalitis PCR panel negative. Normal CSF profile is not suggestive of Lyme meningitis--could plausibly have been affected by having received 5 days of ceftriaxone, although may still expect to see some abnormality? Recommendations: - Although Lyme meningitis seems less likely, would be reasonable to complete a total 14 day course of treatment for ?Lyme meningitis. Can continue ceftriaxone 2 g IV q24h and transition to doxycycline 100 mg PO BID through 05/23/25. Pt favors taking doxycycline rather than discharging on home IV antibiotics. - Follow-up Lyme western blot (turnaround time per [facility] is 5-10 days) and remaining CSF studies Discussed with Dr. Gonzalez. Will sign off. Admission and Anticipated Discharge Date Admission Date: May 14, 2025 Subjective Subsequent visit was provided via telemedicine using two-way real-time interactive telecommunication between the patient and the telemedicine provider. For the duration of the visit, the provider was performing the assessment from a different facility than the patient. This includesuse of bluetooth stethoscope forauscultationperformed by the telepresenter that the telemedicine provider can hear if described in the physical exam. Roll Plugger Machine Operator contact information: Please call [facility] . (Phone Number For Physician Use Only) After establishing a telemedicine visit, patient was: Patient was verified with two unique identifiers, Patient/authorized rep acknowledged consent and understanding and Gave permission to continue telehealth session Time Spent with Patient: Subsequent => 25 min No acute events Pt continues with headache, sensitivity to light, overall improved with Toradol Review of System A complete ROS was performed and is negative except as mentioned in the HPI. Physical Exam Physical Exam: GEN: in NAD. HEENT: Normocephalic, atraumatic. RESP: No increased work of breathing NEURO: Alert and oriented. Answers all questions appropriately. Speech not slurred. PSYCH: Normal mood, affect appropriate. Results & Data Vital Signs (Past 12 Hours) Vital Signs Temp Pulse Resp BP Pulse Ox O2 Del Method 05/16/25 08:07 36.5 C 76 18 111/72 97 Room Air 05/16/25 08:00 Room Air 05/15/25 23:03 36.4 C L 67 18 101/62 97 Room Air
--- NOTE | 2025-05-16 12:05 | Discharge Summary ---
Discharge Summary Date of Service May 16, 2025 Principal Dx & Hospital Course #1 = Principal Diagnosis (1) Lyme disease: (2) Migraine headache: (3) Diabetes: Plan This patient is a 60-year-old female with a history of migraine headaches, DM2, fibromyalgia, TBI, allergies, GERD, and possible CVA at the age of 31 who presents with migraine headache, neck pain and stiffness, nausea/vomiting, with suspected acute Lyme disease. #Lyme disease/migraine headache/neck pain/sepsis POA-with positive Lyme IgG and IgM, Western blot pending. Given ongoing different type of migraine headache and neck stiffness, LP obtained on 05/15 which had 0 WBCs, negative Gram stain, and BioFire negative. Protein upper limit of normal and glucose normal. Not consistent with meningitis although Lyme PCR on CSF is pending and she had been on ceftriaxone for 5 days prior to LP. Anaplasmosis PCR negative. No further fever or tachycardia. Migraine headache is improving with Toradol and Benadryl cocktail. Nausea/vomiting resolved. Dizziness and blurry vision improved. - Continue ibuprofen and Benadryl as needed for migraine after discharge - Received 6 doses of IV ceftriaxone and will finish out 14-day course of treatment with doxycycline x 8 more days-she is willing to take doxycycline-her previous side effects were blurry vision and peripheral hallucinations as well as GI upset-these side effects may not have actually been side effects from doxycycline, but rather from her migraine that she had at the time she was taking doxycycline - Appreciate ID consultation - Follow-up Lyme Western blot and remaining CSF studies i.e. West Nile virus, VDRL, cryptococcus antigen, EBV, Lyme PCR after discharge by PCP -Zofran as needed for nausea associated with doxycycline was prescribed - Recommend follow-up with neurology or the [facility] headache clinic for discussion of migraine prevention as she gets migraines at least once a month and severe migraines twice a year #Hypothyroid-TSH is elevated but free T4 is normal - Follow as an outpatient #Type 2 diabetes-blood sugars have been well-controlled with almost no insulin given -Diabetic diet, follow-up with PCP #History of fibromyalgia -continue baclofen, duloxetine #History of peripheral edema -Continue Lasix as needed #GERD-continue pantoprazole 40 mg twice daily DVT prophylaxis-SCDs, ambulation Disposition-improving, stable for discharge to home Notes For Next Care Provider Check TSH for subclinical hypothyroidism in 4 to 6 weeks Needs follow-up with neurology or headache clinic for discussion of migraine prevention therapy Monitor for side effects from doxycycline Medication Changes From Visit See medication list Admission HPI Per Admitting Provider 60-year-old female history of type 2 diabetes, fibromyalgia, recurrent migraine headaches, TBI about a year ago, multiple allergies and GERD presents to the emergency department with "vomiting, headache, back pain". The patient notes that this past Thursday evening, 05/06/2025 she developed a headache. She denies any trauma or injury. This does feel similar to previous headaches. She notes that she continues to vomit and is having trouble keeping down any food or fluid. She also notes right low back pain radiating down the right leg. She notes this is not the worst headache of her life. No anticoagulant use. She notes remote history of stroke around age 31. She questions if she has had a fever but none at the present time. Reported tick bite a few months ago. Subjective fevers of the last 24 hours. In the emergency department she was mildly hypotensive. Responded well to volume expansion. Initial lab workup showed no significant acute abnormalities. Her Lyme screen was equivocal and IgM and IgG were both reactive. After volume resuscitation she was still feeling quite weak. Having difficulty with ambulation. Some dizziness and orthostasis. Secondary to the persistent symptoms, difficulty with other oral based medications to cover Lyme and possibly anaplasmosis she was referred for admission, ongoing IV antibiotic therapy. Follow-up cultures. Selection definitive antibiotics. Discharge Exam Constitutional WD/WN, vitals as above Respiratory normal respiratory effort, lungs clear to auscultation Cardiovascular RRR, no murmur, no edema Gastrointestinal (Abdomen) normal bowel sounds, soft, nontender, no hepatosplenomegaly Neurologic PERRL, EOMI, accommodation nl, no face palsy, no dysarthria Psychiatric A+Ox3, euthymic affect Discharge Plan Discharge Items Patient Disposition: Home - Self-Care Reason For Visit: SIRS/LYME Discharge Diagnosis: Lyme disease Migraine headache Condition on Discharge: Fair Activity: As commented below Lifting: No more than 5 pounds Bathing: No limitations Exercise/Sports: Wait until after follow-up appointment Driving/Machine Use: No driving until migraine has resolved Non-emergency contact: Primary Care Provider and Neurologist Call non-emergency contact if: you have any medication questions, your symptoms worsen, your pain is not controlled, your pain is worsening and you have a fever Follow-up/Referrals: Saniya Sim PA-C [Primary Care Provider] - (Follow-up within 1-2 weeks after discharge.) Lucinda Fermin MD [Physician] - (Please call to schedule an appointment with the headache clinic, Dr. Fermin) Diet: Regular Addtl Attending Provider Instructions: You were admitted with a severe migraine headache and found to have Lyme disease. You had a spinal tap which did not show evidence of meningitis, however you had been on antibiotics for 5 days when the spinal tap was performed. Infectious disease was consulted and recommended completing a course of treatment in case of Lyme meningitis with a total of 14 days of treatment. You received IV ceftriaxone x 6 doses in the hospital and will continue with 8 more days of doxycycline twice a day as an antibiotic for Lyme meningitis. There are several lab tests that are not resulted at the time of your discharge from your cerebrospinal fluid-these include West Nile, EBV, syphilis, cryptococcus, and Lyme. Your PCP can call the [facility] lab to get the results of these within 1 week after discharge. For your migraine headache, you can take ibuprofen and Benadryl together every 6 hours as needed for migraines. Because you have migraines often, please discuss with your PCP or your neurologist about starting on a daily preventative medication for migraine headaches. If you prefer, [facility] has a headache clinic with Dr. Lucinda Fermin-I will give you her information to call to schedule an appointment if you wish. You can take Zofran as needed for nausea associated with doxycycline. It was a pleasure taking care of you! If you have any questions about your care before your hospital follow-up visit with your primary care provider, please call [phone] and ask to be transferred to the [facility] Medicine office. Sincerely, Doreen Gonzalez M.D. Pending Studies at Discharge: Yes (West Nile, EBV, VDRL, cryptococcus, Lyme titers CSF and serum) Stand-Alone Forms: My [facility], Smoking Cessation Medications and DC Order Prescriptions: New diphenhydramine HCl [Benadryl Allergy] 25 mg tablet 25 mg PO Q6H PRN (Reason: migraine headache) Qty: 30 0RF Rx Instructions: Vjqs-khm-ebghzdt ibuprofen 200 mg capsule 600 mg PO Q6H PRN (Reason: migraine headache) Qty: 30 0RF Rx Instructions: Kpav-ydk-eojekoi doxycycline hyclate 100 mg tablet 100 mg PO BID Qty: 16 0RF ondansetron 4 mg tablet,disintegrating 4 mg PO Q8H PRN (Reason: Nausea) 3 Days Qty: 9 0RF Continued baclofen 20 mg tablet 20 mg PO AMHS albuterol sulfate 90 mcg/actuation HFA aerosol inhaler 2 puff INHALATION Q4H PRN (Reason: wheeze) furosemide [Lasix] 20 mg Tablet 20 mg PO DAILY PRN (Reason: Edema) multivitamin [Multi-Vitamin] Tablet 1 tab PO DAILY pantoprazole 40 mg tablet,delayed release (DR/EC) 40 mg PO BIDM Rx Instructions: take 30 minutes before am and pm meals duloxetine 30 mg capsule,delayed release(DR/EC) 30 mg PO QPM Discharge Orders: Discharge Order (Routine); Ordered 05/16/25 Ordered By: Doreen Gonzalez Admission Data Admit Date/Time: 05/14/25 13:37 Attending Provider: Doreen Gonzalez Admit Provider: Brayden Pearson Primary Care Provider: Saniya Sim. Other Providers: Axel Mendoza; Brayden Pearson Hospital Stay Data Consultations 05/10/25 15:28 ED Decision to Admit Stat 05/10/25 15:49 ED Decision to Admit Stat 05/13/25 07:59 Consult Infectious Diseases Routine Diagnostic Imagining Performed 05/10/25 09:52 CT abd pelvis wo con Stat CT head/brain wo con Stat 05/12/25 12:43 MRI Brain [MR brain wo con] Urgent 05/15/25 10:22 IR lumbar puncture diagnostic Routine Pending Results Patient Have Any Pending Studies at Discharge: Yes (West Nile, EBV, VDRL, cryptococcus, Lyme titers CSF and serum) Discharge Instructions Given to Patient (Per Discharging Provider) You were admitted with a severe migraine headache and found to have Lyme disease. You had a spinal tap which did not show evidence of meningitis, however you had been on antibiotics for 5 days when the spinal tap was performed. Infectious disease was consulted and recommended completing a course of treatment in case of Lyme meningitis with a total of 14 days of treatment. You received IV ceftriaxone x 6 doses in the hospital and will continue with 8 more days of doxycycline twice a day as an antibiotic for Lyme meningitis. There are several lab tests that are not resulted at the time of your discharge from your cerebrospinal fluid-these include West Nile, EBV, syphilis, cryptococcus, and Lyme. Your PCP can call the [facility] lab to get the results of these within 1 week after discharge. For your migraine headache, you can take ibuprofen and Benadryl together every 6 hours as needed for migraines. Because you have migraines often, please discuss with your PCP or your neurologist about starting on a daily preventative medication for migraine headaches. If you prefer, [facility] has a headache clinic with Dr. Lucinda Fermin-I will give you her information to call to schedule an appointment if you wish. You can take Zofran as needed for nausea associated with doxycycline. It was a pleasure taking care of you! If you have any questions about your care before your hospital follow-up visit with your primary care provider, please call [phone] and ask to be transferred to the [facility] office. Sincerely, Doreen Gonzalez M.D. Total Time Total Time Spent Total Time Spent (In Minutes): 35-minute Total Time Includes: Examination of the Patient, Discharge Planning, Medication Reconciliation and Communication With Other Providers (Infectious disease) Coding Level of Care Code 03612 INP/OBS DISCH >30 MIN Diagnoses Lyme disease A69.20 Migraine headache G43.909 Diabetes E11.9
[2025-05-16] MEDS: cefTRIAXone SODIUM 2,000 MG/50 ML BAG IV SCH (13:49)
[2025-05-18 02:22] LABS: Lyme Antibodies, WB IgG POSITIVE (NEGATIVE); Lyme Antibodies, WB IgM NEGATIVE (NEGATIVE)
[2025-05-18 20:53] LABS: EBV DNA, Quant Log Not Detected Log cps/mL
[2025-05-19 14:57] LABS: VDRL Qualitative CSF Nonreactive (Nonreactive)
[2025-05-20 22:21] LABS: Source CSF; West Nile Virus, PCR Source CSF; West Nile Virus, PCR, CSF NOT DETECTED (NOT DETECTED)
== END 2025-05-16 15:41 | disposition home or self-care (01) | DRG 869 ==
LOC: ED 09:25 → EDINP 09:25 → 3N 21:31 → SUATTDRO 05-14 13:56